=== PATIENT | male | born 1945 | race Caucasian/White ===

== ENCOUNTER 2017-12-15 16:49 | Inpatient (IN) | payer MEDICARE ==
[2017-12-15 17:35] LABS: Hematocrit 44 % (42-52); Hemoglobin 14.8 g/dl (14.0-18.0); Mean Corpuscular HGB Conc 34 g/dl (31-36); Mean Corpuscular Hemoglobin 30 pg (27-31); Mean Corpuscular Volume 90 fL (80-94); Mean Platelet Volume 9.2 um3 (7.4-10.4); Platelet Count 162 10^3/ul (150-450); Red Blood Count 4.93 10^6/ul (4.0-5.4); Red Cell Distribution Width 15 % (10.5-15)
--- NOTE | 2017-12-15 17:51 | RAD ---
INDICATION: Difficulty breathing. COPD. COMPARISON: October 21, 2014 CT. TECHNIQUE: Dual energy PA and routine lateral views of the chest were obtained. REPORT: Chronic moderate elevation of the RIGHT hemidiaphragm. Overall the lung volumes are elevated and there is patchy rarefaction of the mid to upper lung zone interstitial markings. No alveolar consolidation, focal pulmonary lesion, pleural effusion, pneumothorax. The heart, pulmonary vasculature, and mediastinal contours are unremarkable. Diffuse mild thoracic degenerative spondylosis. IMPRESSION: 1. Chronic obstructive pulmonary disease. 2. Chronic moderate elevation of the RIGHT hemidiaphragm. 3. No acute cardiopulmonary process evident.
[2017-12-15 17:52] LABS: EGFR Non-African American 81.1 (>60)
[2017-12-15 17:53] LABS: ABS Basophils 0.1 10^3/ul (0-0.2); ABS Eosinophils 0 10^3/ul (0-0.6); ABS Lymphocytes 1.8 10^3/ul (1.0-4.8); ABS Monocytes 1.9 10^3/ul (0-0.8); ABS Neutrophils 11.1 10^3/ul (1.5-7.7); ABS Nucleated RBC 0 10^3/ul; Eosinophil % 0.2 % (0-6); Lymphocyte % 12.3 % (25-47); Nucleated Red Blood Cells % 0.1
[2017-12-15 18:07] LABS: Urine Appearance Cloudy; Urine Blood 1+ (Negative); Urine Color Amber; Urine Ketones Negative (Negative); Urine Protein Negative (Negative); Urine Specific Gravity 1.021 (1.010-1.030); Urine Urobilinogen Positive (Negative)
[2017-12-15] MEDS ORDERED: cefTRIAXone(*) 2 GM in NS 0.9% 100 ML* 100 ML IVPB ONE (18:15)
[2017-12-15] MEDS ORDERED: NS 0.9% 100 ML* 100 ML ONE (18:18)
[2017-12-15] MEDS ORDERED: NS 0.9% 1000 ML* 3,000 ML IV ONE (18:20)
[2017-12-15] MEDS ORDERED: Ondansetron INJ* 2 MG/ML VIAL ONE (18:45)
[2017-12-15] MEDS ORDERED: Ondansetron INJ* 2 MG/ML VIAL IV ONE (18:46)
--- NOTE | 2017-12-15 18:50 | ED ---
Yony Cornejo Stephanie, scribed for Rafa Dc MD on 12/15/17 at 1724 . Shortness of Breath - HPI Summary HPI Summary: The pt is a 72 y/o M presenting to the ED with c/o SOB since 12/12/17. Symptoms include weakness, dysuria, dyspnea and urinary retention. The pt denies CP, abd pain and fever. The pt has a hx of COPD. - History of Current Complaint Chief Complaint: EDShortnessOfBreath Time Seen by Provider: 12/15/17 17:03 Hx Obtained From: Patient Onset/Duration: Gradual Onset, Lasting Days - 2-3, Still Present Timing: Constant Current Severity: Moderate Dyspnea At: Rest Aggrevating Factors: Movement, Other - laying supine Alleviating Factors: Nothing - Allergy/Home Medications Allergies/Adverse Reactions: Allergies Allergy/AdvReac Type Severity Reaction Status Date / Time No Known Allergies Allergy Verified 10/21/14 13:28 Home Medications: Home Medications Albuterol HFA INHALER* [Ventolin HFA Inhaler*] 2 puff INH Q4H PRN 12/15/17 [ History Confirmed 12/15/17] Budesonide/Formote 160/4.5(NF) [Symbicort 160/4.5 (NF)] 1 puff INH BID 12/15/17 [History Confirmed 12/15/17] PMH/Surg Hx/FS Hx/Imm Hx Endocrine/Hematology History: Denies: Hx Diabetes Cardiovascular History: Reports: Hx Hypercholesterolemia Denies: Hx Congestive Heart Failure, Hx Hypertension Respiratory History: Reports: Hx Asthma - Childhood, Hx Chronic Obstructive Pulmonary Disease (COPD), Hx Sleep Apnea - new CPAP History: Denies: Hx Renal Disease Sensory History: Reports: Hx Contacts or Glasses Opthamlomology History: Reports: Hx Contacts or Glasses - Surgical History Surgery Procedure, Year, and Place: NONE Infectious Disease History: No Infectious Disease History: Denies: Traveled Outside the [place] in Last 30 Days - Family History Known Family History: Positive: Cardiac Disease - [place], Diabetes, Other - breast cancer-sister - Social History Occupation: Employed Full-time Lives: With Family Alcohol Use: None Substance Use Type: Reports: None Smoking Status (MU): Former Smoker Review of Systems Negative: Fever, Chills Negative: Erythema Negative: Sore Throat Negative: Chest Pain Positive: Shortness Of Breath, Other - dyspnea. Negative: Cough Negative: Abdominal Pain, Vomiting, Nausea Positive: dysuria, other - urinary retention. Negative: hematuria Negative: Myalgia, Edema Negative: Rash Neurological: Other - Negative: dizziness Positive: Weakness All Other Systems Reviewed And Are Negative: Yes Physical Exam - Summary Physical Exam Summary: Constitutional: Well-developed, Well-nourished, Alert. (-) Distressed Skin: Warm, Dry HENT: Normocephalic; Atraumatic Eyes: Conjunctiva normal Neck: Musculoskeletal ROM normal neck. (-) JVD, (-) Stridor, (-) Tracheal deviation Cardio: Rhythm regular, rate normal, Heart sounds normal; Intact distal pulses; The pedal pulses are 2+ and symmetric. Radial pulses are 2+ and symmetric. (-) Murmur Pulmonary/Chest wall: Effort normal. (-) Respiratory distress, (-) Wheezes, (-) Rales Abd: Soft, obese abdomen, (-) Tenderness, (-) Distension, (-) Guarding, (-) Rebound Musculoskeletal: (-) Edema Lymph: (-) Cervical adenopathy Neuro: Alert, Oriented x3 Psych: Mood and affect Normal Triage Information Reviewed: Yes Vital Signs On Initial Exam: Initial Vitals Temp Pulse Resp BP Pulse Ox 98.9 F 97 24 132/71 86 12/15/17 16:56 12/15/17 16:56 12/15/17 16:56 12/15/17 16:56 12/15/17 16:56 Vital Signs Reviewed: Yes Diagnostics - Vital Signs Vital Signs Temp Pulse Resp BP Pulse Ox 12/15/17 16:56 98.9 F 97 24 132/71 86 - Laboratory Result Diagrams: 12/15/17 17:24 12/15/17 17:24 Lab Statement: Any lab studies that have been ordered have been reviewed, and results considered in the medical decision making process. - Radiology CXR Xray Interpretation: Positive (See Comments) Radiology Interpretation Completed By: Radiologist - 1. Chronic obstructive pulmonary disease. 2. Chronic moderate elevation of the RIGHT hemidiaphragm. 3. No acute cardiopulmonary process evident. ED physician has reviewed this report and agrees. - EKG 17:19 Cardiac Rate: Tachycardia EKG Rhythm: Sinus Tachycardia - 100 BPM EKG Interpretation: No STEMI Re-Evaluation - Re-Evaluation First Eval Re-Evaluation Time: 18:12 Change: Worse - The pt states he is feeling weak and worse that when he first entered the ED. He has been feeling fatigued for the past 3 days. Current fever of 101.5. Course/Dx - Course Course Of Treatment: ED physician will admit the pt for prostatitis and sepsis. - Diagnoses Provider Diagnoses: Prostatitis, Sepsis - Physician Notifications Discussed Care of Patient With: Zaire Kirk Time Discussed With Above Provider: 18:18 Discharge - Sign-Out/Discharge Documenting (check all that apply): Discharge - Discharge Plan Condition: Stable Disposition: ADMITTED TO [facility] Referrals: Vidal Quan MD [Primary Care Provider] - Additional Instructions: RETURN TO THE EMERGENCY DEPARTMENT FOR CHANGING OR WORSENING SYMPTOMS. The documentation as recorded by the Yony souza Stephanie accurately reflects the service I personally performed and the decisions made by Dao snyder Jerry, MD.
[2017-12-15] MEDS ORDERED: CEFTRIAXONE 2000 MG IVPB ONE ×2 (19:00)
[2017-12-15] MEDS ORDERED: Acetaminophen TAB* 325 MG ONE (19:25)
[2017-12-15] MEDS: Acetaminophen TAB* 325 MG PO PRN (19:30)
[2017-12-15] MEDS ORDERED: Albuterol HFA INHALER* 8 gm MDI INH PRN (19:32)
[2017-12-15] MEDS ORDERED: NS 0.9% 1000 ML* 1,000 ML IV ONE (20:11)
[2017-12-15] MEDS: Heparin VIAL(*) 5000 UNITS/ML VIAL (FIVE THOUSAND) SUBCUT SCH (22:00)
--- NOTE | 2017-12-16 00:33 | HP ---
CC: Dr. Quan * [facility] MEDICINE HISTORY AND PHYSICAL: DATE OF ADMISSION: 12/15/17 PRIMARY CARE PHYSICIAN: Dr. Quan. ATTENDING PHYSICIAN: Dr. Mukund Barrios *(dictation provided by Naida Casarez NP) CHIEF COMPLAINT: Difficulty urinating. HISTORY OF PRESENT ILLNESS: Mr. Joy is a 72-year-old male with past medical history of COPD and obstructive sleep apnea who presents to the hospital with concern for inability to urinate. The patient states that he has been feeling unwell for about 2 to 3 days. He just described generalized malaise and poor appetite. He was urinating without difficulty without dysuria or frequency. He had no fever. He had no other specific symptoms, but stated that he just wanted to "lie in the bed all day." Last night, he had some burning when he tried to urinate and then since the evening, he had not been able to urinate again. Last night, he did have significant burning when he tried to urinate. He denies any other complaint, other than headache. He has had no chest pain. No shortness of breath, no nausea, no vomiting, no abdominal pain. In the emergency room, Mr. Joy had a Lorenzo placed. He only had 100 to 200 mL of urine at that point. His white blood cell count is elevated to 15. His BUN and creatinine are normal. His urinalysis is grossly positive with positive nitrite, leuk esterase and bacteria. He is febrile with a temperature 102, but not tachycardiac and his blood pressure is stable. PAST MEDICAL HISTORY: 1. Obstructive sleep apnea with CPAP. 2. COPD. 3. Fatty liver. MEDICATIONS: Outpatient are: 1. Albuterol inhaled q.4 hours p.r.n. 2. Symbicort 160/4.5 one puff inhaled b.i.d. ALLERGIES: No known drug allergies. FAMILY HISTORY: Father had [place] and had diabetes and at 72. His sister and mother, both had breast cancer. SOCIAL HISTORY: The patient is a former smoker. He quit 40 years ago. There is no reported alcohol or drug use. The patient lives with his Nneka. 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 He states his Nneka will be the healthcare proxy. REVIEW OF SYSTEMS: A 14-point review of systems was completed with Mr. Joy and all those not mentioned above were negative. PHYSICAL EXAMINATION GENERAL: Mr. Joy is lying in the bed. He is in no acute distress. His is at bedside. VITAL SIGNS: Temperature 102, pulse rate 97, respiratory rate 20, O2 saturation 95% on room air, and blood pressure 112/58. HEENT: Extraocular movements are intact. LUNGS: Clear to auscultation bilaterally with no accessory muscle use and good aeration. HEART: S1, S2. No murmur, rub, or gallop and regular. ABDOMEN: Soft and nontender with bowel sounds positive x4. EXTREMITIES: No cyanosis or edema. NEURO: He is alert. He is oriented x3. He moves all extremities equally. There is no facial asymmetry. No focal weakness. SKIN: Intact. LABORATORY DATA/DIAGNOSTIC STUDIES: WBC 15.0, hemoglobin 14.8, hematocrit 44, platelet count 162. Sodium 134, potassium 3.9, chloride 101, serum bicarbonate 26, BUN 14, creatinine 0.92. Glucose 134, lactic acid 1.3. Urine shows positive nitrites, 2+ leuk esterase, 1+ bacteria. Flu swab is negative. Chest x-ray shows "chronic obstructive pulmonary disease, chronic moderate elevation of the right hemidiaphragm, no acute cardiopulmonary process evident. " EKG shows sinus tachycardia with heart rate about 100 and no evidence of ischemia. ASSESSMENT AND PLAN: Mr. Joy is a 72-year-old male with past medical history obstructive sleep apnea, with CPAP and chronic obstructive pulmonary disease who presents to hospital today with 2 to 3 days of generalized malaise culminating in dysuria and urinary retention, found to have sepsis secondary to urinary tract infection/prostatitis. Our plans are for inpatient admission as expected length of stay to be greater than 2 days for the followin. Sepsis secondary to urinary tract infection/prostatitis: The patient will be treated with ceftriaxone and intravenous fluids. He will have Tylenol available for fever. He has received 3 L of IV fluid in the emergency room. I will give an additional liter now to equal the full 30 mL per kg. He will have IV fluids at 150 mL per hour after that. The patient did have blood cultures drawn. He is hemodynamically stable. His lactic acid is normal. 2. Obstructive sleep apnea. Continue CPAP. 3. Chronic obstructive pulmonary disease. No evidence of acute exacerbation. I will plan to continue albuterol p.r.n. 4. DVT prophylaxis with heparin subcu. 5. Code status is full code. TIME SPENT: Approximately 60 minutes was spent on admission of this patient; more than half time spent with the patient at the bedside reviewing the events leading up to this hospitalization, performing the physical examination and reviewing the plan of care. NAIDA CASAREZ NP [id number]/[facility] #: [id number] TAMEKA
[2017-12-16] MEDS: Acetaminophen TAB* 325 MG PO PRN ×2 (05:17→11:28)
[2017-12-16] MEDS: Heparin VIAL(*) 5000 UNITS/ML VIAL (FIVE THOUSAND) SUBCUT SCH ×3 (05:18→22:01)
[2017-12-16 05:43] LABS: ABS Basophils 0.1 10^3/ul (0-0.2); ABS Eosinophils 0.1 10^3/ul (0-0.6); ABS Lymphocytes 2.1 10^3/ul (1.0-4.8); ABS Monocytes 1.4 10^3/ul (0-0.8); ABS Neutrophils 8.1 10^3/ul (1.5-7.7); ABS Nucleated RBC 0 10^3/ul; Eosinophil % 0.7 % (0-6); Hematocrit 39 % (42-52); Hemoglobin 13.4 g/dl (14.0-18.0); Mean Corpuscular HGB Conc 34 g/dl (31-36); Mean Corpuscular Hemoglobin 30 pg (27-31); Mean Corpuscular Volume 89 fL (80-94); Nucleated Red Blood Cells % 0; Platelet Count 158 10^3/ul (150-450); Red Blood Count 4.44 10^6/ul (4.0-5.4); Red Cell Distribution Width 14 % (10.5-15); White Blood Count 11.8 10^3/ul (3.5-10.8)
[2017-12-16 06:00] LABS: EGFR Non-African American 101.1 (>60)
--- NOTE | 2017-12-16 08:54 | PN ---
Subjective Date of Service: 12/16/17 Interval History: Mr. Joy reports feeling much better today. He denies dyuria and continues to be draining dark urine through the salinas. He has a mild headache but denies other complaint including chest pain, SOB, nausea, or abdominal pain. Objective Active Medications: Acetaminophen (Tylenol Tab*) 650 mg PO Q6H PRN Albuterol (Ventolin Hfa Inhaler*) 2 puff INH Q4H PRN Heparin Sodium (Porcine) (Heparin Vial(*)) 5,000 units SUBCUT Q8HR DOR[place] Lactated Ringer's (Lactated Ringers 1000 Ml Bag*) 1,000 mls @ 150 mls/hr IV PER RATE DOROTA Ceftriaxone Sodium 1,000 mg/ (Sterile Water) 10 mls @ 40 mls/hr IVPB Q24H DOROTA Vital Signs: Temp Pulse Resp BP Pulse Ox 98.4 F 83 17 151/67 93 12/16/17 07:11 12/16/17 07:11 12/16/17 07:11 12/16/17 07:11 12/16/17 07:11 Oxygen Devices in Use Now: None Appearance: Male lying in bed in NAD Eyes: No Scleral Icterus Ears/Nose/Mouth/Throat: Mucous Membranes Moist Neck: Trachea Midline Respiratory: Symmetrical Chest Expansion and Respiratory Effort, Clear to Auscultation Cardiovascular: NL Sounds; No Murmurs; No JVD, No Edema Abdominal: NL Sounds; No Tenderness; No Distention Lymphatic: No Cervical Adenopathy Extremities: No Edema Skin: No Rash or Ulcers Neurological: Alert and Oriented x 3, NL Muscle Strength and Tone Result Diagrams: 12/16/17 05:24 12/16/17 05:24 Microbiology and Other Data: . Assess/Plan/Problems-Billing Assessment: Mr. Joy is a 72 yo M with a PMH of OTTONIEL and COPD who was admitted on 12/15/17 with urinary retention and sepsis secondary to UTI/prostatitis. - Patient Problems (1) Sepsis Comment: - Resolved. WBC normalized, no further fever. - Secondary to UTI/prostatitis. - Continue IVF as urine remains dark and patient was significantly dehydrated on arrival. (2) Prostatitis Comment: - Suspect prostatitis based on severity of symptoms. - Plan for three week course of antibiotics and follow up with urology. - Culture with ecoli, continue ceftriaxone and await sensitivities. - Urinary retention on arrival, plan for voiding trial tomorrow. (3) Impaired fasting glucose Comment: - BG 135 this AM. - Check HgbA1c. (4) COPD (chronic obstructive pulmonary disease) Comment: - No evidence of exacerbation. - Continue symbicort. (5) OTTONIEL on CPAP Comment: - Continue home cpap. (6) DVT prophylaxis Comment: - Heparin SQ. (7) Full code status Comment: Status and Disposition: Inpatient with expected LOS > 2 days. Anticipate discharge to home when medically stable.
[2017-12-16] MEDS: NS 0.9% 1000 ML* 1,000 ML IV SCH ×2 (13:18→20:13)
[2017-12-16] MEDS ORDERED: Lidocaine 4% TOPICAL* 50 ML TOP.SOLN TOPICAL PRN (16:19)
[2017-12-16] MEDS: Morphine INJ* 4 MG/ML 1 ML SYRINGE (NEW SYRINGE VERSION) IV PRN ×2 (16:39→21:03)
[2017-12-16] MEDS ORDERED: cefTRIAXone VIAL(*) 1,000 MG VIAL IVPB SCH (18:00)
[2017-12-16] MEDS ORDERED: NS 0.9% IVPB SCH (18:00)
[2017-12-16] MEDS ORDERED: CEFTRIAXONE IVPB SCH (18:00)
[2017-12-16] MEDS: PTO - Budesonide/Formote 160/4.5(NF) MDI INH SCH (18:04)
[2017-12-17] MEDS: NS 0.9% 1000 ML* 1,000 ML IV SCH ×2 (03:24→09:59)
[2017-12-17] MEDS: PTO - Budesonide/Formote 160/4.5(NF) MDI INH SCH (06:12)
[2017-12-17] MEDS: Heparin VIAL(*) 5000 UNITS/ML VIAL (FIVE THOUSAND) SUBCUT SCH ×2 (06:13→14:23)
--- NOTE | 2017-12-17 08:52 | PN ---
Subjective Date of Service: 12/17/17 Interval History: Mr. Joy is feeling well today and is eager for discharge to home. Objective Active Medications: Acetaminophen (Tylenol Tab*) 650 mg PO Q6H PRN Albuterol (Ventolin Hfa Inhaler*) 2 puff INH Q4H PRN Budesonide/Formoterol Fumarate (Symbicort 160/4.5 (Nf)) 1 puff INH 0600,1800 D[place] Heparin Sodium (Porcine) (Heparin Vial(*)) 5,000 units SUBCUT Q8HR D[place] Ceftriaxone Sodium 1,000 mg/ (Sodium Chloride) 10 mls @ 40 mls/hr IVPB 1800 DOR[place] Sodium Chloride (Ns 0.9% 1000 Ml*) 1,000 mls @ 150 mls/hr IV PER RATE DOROTA Lidocaine HCl (Lidocaine 4% Topical*) 1 applic TOPICAL .SEE ORDER PRN Morphine Sulfate (Morphine Inj (Syringe)*) 4 mg IV Q4H PRN Vital Signs: Temp Pulse Resp BP Pulse Ox 98.9 F 73 16 104/46 93 12/17/17 11:25 12/17/17 11:25 12/17/17 11:25 12/17/17 11:25 12/17/17 11:25 Oxygen Devices in Use Now: None Appearance: Male lying in bed in NAD Eyes: No Scleral Icterus Ears/Nose/Mouth/Throat: Mucous Membranes Moist Neck: Trachea Midline Respiratory: Symmetrical Chest Expansion and Respiratory Effort, Clear to Auscultation Cardiovascular: NL Sounds; No Murmurs; No JVD, No Edema Abdominal: NL Sounds; No Tenderness; No Distention Lymphatic: No Cervical Adenopathy Extremities: No Edema Skin: No Rash or Ulcers Neurological: Alert and Oriented x 3, NL Muscle Strength and Tone Nutrition: Taking PO's Result Diagrams: 12/16/17 05:24 12/16/17 05:24 Microbiology and Other Data: . Assess/Plan/Problems-Billing Assessment: Mr. Joy is a 72 yo M with a PMH of OTTONIEL and COPD who was admitted on 12/15/17 with urinary retention and sepsis secondary to UTI/prostatitis. - Patient Problems (1) Sepsis Comment: - Resolved. WBC normalized, no further fever. - Secondary to UTI/prostatitis. (2) Prostatitis Comment: - Suspect prostatitis based on severity of symptoms. - Plan for three week course of antibiotics and follow up with urology. - Culture with ecoli, continue ceftriaxone and await sensitivities. - Urinary retention on arrival, patient will be discharged with salinas to follow up outpatient with urology. (3) Impaired fasting glucose Comment: - BG 135 this AM. - Check HgbA1c 6.8, recommend lifestyle changes and follow up with PCP. (4) COPD (chronic obstructive pulmonary disease) Comment: - No evidence of exacerbation. - Continue symbicort. (5) OTTONIEL on CPAP Comment: - Continue home cpap. (6) DVT prophylaxis Comment: - Heparin SQ. (7) Full code status Comment: Status and Disposition: Inpatient with expected LOS > 2 days. Discharge to home.
[2017-12-17 15:49] VITALS: BP 129/68
--- NOTE | 2017-12-18 02:38 | DS ---
CC: Dr. Quan * [facility] MEDICINE DISCHARGE SUMMARY: DATE OF ADMISSION: 12/15/17 DATE OF DISCHARGE: 12/17/17 PRIMARY CARE PROVIDER: Dr. Quan. ATTENDING PHYSICIAN: Dr. Zaire Kirk * (dictation provided by Naida Casarez NP). PRIMARY DIAGNOSES: 1. Sepsis. 2. Prostatitis. 3. new diagnosis of diabetes with hemoglobin A1c of 6.8. SECONDARY DIAGNOSES: 1. Obstructive sleep apnea, with CPAP. 2. Chronic obstructive pulmonary disease. 3. Fatty liver. MEDICATIONS AT THE TIME OF DISCHARGE: 1. Budesonide/formoterol 160/4.5 one puff inhaled b.i.d. 2. Albuterol inhaler 2 puffs inhaled q.4 hours p.r.n. 3. Bactrim DS 1 tab p.o. b.i.d. x19 days. HOSPITAL COURSE: Mr. Joy is a 72-year-old male with past medical history as mentioned above, who presented to the hospital on 12/15/17 with concern for inability to urinate. Please see the dictated H and P from myself for complete details. In brief, the patient reported that he had had 2 to 3 days prior to admission of feeling poorly. He said that he just felt terrible and wanted to "lay in bed all day." He had no specific other symptom; however, the night prior to admission, he began to have some difficulty urinating culminating in inability to pee and admission to the emergency department. He said there was no significant dysuria prior to that. In the ED, with some difficulty, a Lorenzo was placed and urinalysis was positive for infection with nitrite, 2+ leuk esterase, and positive bacteria. He also had a WBC of 15 and a temperature to 102 qualifying him for 2 SIRS criteria to meet sepsis; however, he did not meet qSOFA criteria. Mr. Joy was admitted to the hospital. He was treated with IV fluids and ceftriaxone for antibiotic coverage. With this, a repeat white blood cell count the next day was 11.8. He has had a low-grade fever as of last night to 100.3 only. He is tolerating oral intake well. He is ambulating in his room independently. Mr. Joy says urine microbiology report is available and shows E. coli, which has varied sensitivities including to Bactrim. Plans are for Mr. Joy to be discharged to home to complete a course of Bactrim for full 3 weeks. He will also be going home with his Lorenzo catheter after receiving teaching from nursing staff. He is to follow up closely with Dr. Hawkins and/or Dr. Gomes in the offices of [facility] in the next 5 to 7 days regarding evaluation and possible removal of Lorenzo. DISPOSITION: To home. DIET: Low fat, low salt, low carb. ACTIVITY: As tolerated. FOLLOWUP PLANS: 1. Please follow up with [facility] regarding evaluation and possible removal of Lorenzo. 2. Please follow up with Dr. Quan regarding this acute hospitalization and regarding finding of hemoglobin A1c of 6.8. TIME SPENT: Approximately 60 minutes was spent on discharge of this patient, more than half time spent with the patient at the bedside reviewing the events leading up to this hospitalization, performing the physical examination, and reviewing the plan of care. NAIDA CASAREZ NP [id number]/[facility] #: [id number] TAMEKA
== END 2017-12-17 15:45 | disposition home or self-care (01) | DRG 872 ==
LOC: ED 16:49 → SSU 18:19
PROVIDERS: ADMIT Internal Medicine; ATTEND Internal Medicine
DX: A41.9 Sepsis, unspecified organism (principal); N39.0 Urinary tract infection, site not specified; N41.9 Inflammatory disease of prostate, unspecified; E11.9 Type 2 diabetes mellitus without complications; G47.33 Obstructive sleep apnea (adult) (pediatric); J44.9 Chronic obstructive pulmonary disease, unspecified; B96.20 Unspecified Escherichia coli [E. coli] as the cause of diseases classified elsewhere; K76.0 Fatty (change of) liver, not elsewhere classified; Z79.899 Other long term (current) drug therapy; Z87.891 Personal history of nicotine dependence; Z83.3 Family history of diabetes mellitus; Z82.49 Family history of ischemic heart disease and other diseases of the circulatory system; Z80.3 Family history of malignant neoplasm of breast
CPT/HCPCS: 36415; 71046; 80048; 80053; 81003; 81015; 83036; 83605; 84484; 85025; 87040; 87077; 87086; 87186; 87502; 93005; 99284; A9270-GY; J0696; J1644; J2270; J2405

== ENCOUNTER 2018-04-16 11:06 | Day surgery (SDC) | payer MEDICARE ==
[~2018-04-16 11:06] MED LIST: Acetaminophen TAB* 325 MG PO PRN; Buffered Lidocaine 0.9% SYRIN* 5 ML/SYR SYRINGE INTRADERM ONE
[2018-04-16] MEDS ORDERED: Midazolam* 1 MG/ML 2 ML VIAL (2 MG) ONE (14:17)
[2018-04-16 14:47] VITALS: BP 142/77
[2018-04-16] MEDS ORDERED: Cyclopentolate 1% OPTH.SOL* 2 ML BTL ONE (15:28)
[2018-04-16] MEDS ORDERED: Lidocaine 1%* 5 ML VIAL ONE (15:28)
[2018-04-16] MEDS ORDERED: acetaZOLAMIDE TAB* 250 MG ONE (15:28)
[2018-04-16] MEDS ORDERED: Phenylephrine 2.5% OPTH.SOL* 2 ML BTL ONE (15:29)
[2018-04-16] MEDS ORDERED: Povidone Iodine 5% OPTH* 30 ML BTL ONE (15:29)
[2018-04-16] MEDS ORDERED: Proparacaine 0.5% OPHTH.SOL* 15 ML BTL ONE (15:29)
[2018-04-16] MEDS ORDERED: Neomycin/Polymy/Dex OPTH.SUSP* MAXITROL 0.1% 5 ML ONE (15:29)
[2018-04-16] MEDS ORDERED: Ketorolac 0.5% OPHTH (NF) 0.5 % 5 ML BTL ONE (15:29)
[2018-04-16] MEDS ORDERED: Lidocaine 2% EPI 1:200000 MPF*10-20 ML VIAL ONE (15:29)
--- NOTE | 2018-04-16 15:39 | OP ---
DATE OF OPERATION: 04/16/2018. DATE OF : 1945. SURGEON: Kurtis Rodriguez M.D. PREOPERATIVE DIAGNOSIS: Cataract right eye. POSTOPERATIVE DIAGNOSIS: Cataract right eye. OPERATIVE PROCEDURE: Extracapsular cataract extraction with intraocular lens implant right eye. PROCEDURE: The patient was brought to the operating room after being given 1/2% Alcaine with epineph rine drops in the preoperative area. The eye was prepped and draped in the usual sterile fashion. S terile drape and eyelid speculum were placed. Again, topical 1/2% Alcaine with epinephrine was given . A paracentesis incision was made at the 9 o'clock position with the No.75 blade. Clear cornea inc ision 2.2 x 2.2-mm was created at the 12 o'clock position starting at the anterior limbus using the 2 .2-mm keratome. The anterior chamber was irrigated with 0.4 mL of 1% non-preservative intracameral l idocaine and filled with DisCoVisc. A capsulorrhexis was completed using the cystotome and the Utrat a forceps. Hydrodissection was performed with balanced salt solution. The lens nucleus was removed w ith the Phacoemulsification handpiece without incident. Cortex was removed with the irrigation-aspir ation handpiece. The capsular bag was re-inflated using DisCoVisc and an SN60WF 20.5 implant was ins erted with the shooter. The pupil was very small, so a Malyugin ring was used to dilate the pupil pr ior to capsulorrhexis and removed after insertion of the lens. The irrigation-aspiration handpiece w as used to remove all residual DisCoVisc. The eye was refilled with balanced salt solution and the w ound checked and found to be watertight. Topical Maxitrol drops were given. Indication for complex cataract surgery: Pupil abnormality requiring pupil dilation device. [id number]/[facility] #: [id number]
== END 2018-04-16 14:48 | disposition home or self-care (01) ==
LOC: OREAST 11:06
PROVIDERS: ATTEND Specialist
DX: H25.811 Combined forms of age-related cataract, right eye (principal); H21.561 Pupillary abnormality, right eye; H04.123 Dry eye syndrome of bilateral lacrimal glands; H43.813 Vitreous degeneration, bilateral; I10 Essential (primary) hypertension; E78.5 Hyperlipidemia, unspecified; Z99.89 Dependence on other enabling machines and devices; J44.9 Chronic obstructive pulmonary disease, unspecified; R73.03 Prediabetes
CPT/HCPCS: A9270-GY; J2250; V2632

== ENCOUNTER 2018-04-23 06:16 | Day surgery (SDC) | payer MEDICARE ==
[~2018-04-23 06:16] MED LIST changes: -Acetaminophen TAB* 325 MG PO PRN
[2018-04-23] MEDS ORDERED: Midazolam* 1 MG/ML 2 ML VIAL (2 MG) ONE (07:29)
[2018-04-23 07:59] VITALS: BP 136/77
[2018-04-23] MEDS ORDERED: Neomycin/Polymy/Dex OPTH.SUSP* MAXITROL 0.1% 5 ML ONE (11:03)
[2018-04-23] MEDS ORDERED: Phenylephrine 2.5% OPTH.SOL* 2 ML BTL ONE (11:03)
[2018-04-23] MEDS ORDERED: Lidocaine 1%* 5 ML VIAL ONE (11:03)
[2018-04-23] MEDS ORDERED: Povidone Iodine 5% OPTH* 30 ML BTL ONE (11:03)
[2018-04-23] MEDS ORDERED: Cyclopentolate 1% OPTH.SOL* 2 ML BTL ONE (11:03)
[2018-04-23] MEDS ORDERED: Proparacaine 0.5% OPHTH.SOL* 15 ML BTL ONE (11:03)
[2018-04-23] MEDS ORDERED: acetaZOLAMIDE TAB* 250 MG ONE (11:03)
[2018-04-23] MEDS ORDERED: Lidocaine 2% EPI 1:200000 MPF*10-20 ML VIAL ONE (11:03)
[2018-04-23] MEDS ORDERED: Ketorolac 0.5% OPHTH (NF) 0.5 % 5 ML BTL ONE (11:03)
--- NOTE | 2018-04-23 14:10 | OP ---
OPERATIVE NOTE: DATE OF OPERATION: 04/23/18 DATE OF : [birth year] SURGEON: Kurtis Rodriguez M.D. PREOPERATIVE DIAGNOSIS: Cataract, left eye. POSTOPERATIVE DIAGNOSIS: Cataract, left eye. OPERATIVE PROCEDURE: Extracapsular cataract extraction with intraocular lens implant, left eye. DESCRIPTION OF PROCEDURE: The patient was brought to the operating room after being given 1/2% Alcai ne with epinephrine drops in the preoperative area. The eye was prepped and draped in the usual ster ile fashion. Sterile drape and eyelid speculum were placed. Again, topical 1/2% Alcaine with epinep hrine was given. A paracentesis incision was made at the 3 o'clock position with the No.75 blade. Cl ear cornea incision 2.2 x 2.2-mm was created at the 6 o'clock position starting at the anterior limbu s using the 2.2-mm keratome. The anterior chamber was irrigated with 0.4 mL of 1% non-preservative i ntracameral lidocaine and filled with DisCoVisc. A capsulorrhexis was completed using the cystotome and the Utrata forceps. Hydrodissection was performed with balanced salt solution. The lens nucleus was removed with the Phacoemulsification handpiece without incident. Cortex was removed with the irr igation-aspiration handpiece. The capsular bag was re-inflated using DisCoVisc and an SN60WF 19.5 im plant was inserted with the shooter. The irrigation-aspiration handpiece was used to remove all resi dual DisCoVisc. The eye was refilled with balanced salt solution and the wound checked and found to be watertight. Topical Maxitrol drops were given. [id number]/[facility] #: [id number]
== END 2018-04-23 08:05 | disposition home or self-care (01) ==
LOC: OREAST 06:16
PROVIDERS: ATTEND Specialist
DX: H25.812 Combined forms of age-related cataract, left eye (principal); H21.561 Pupillary abnormality, right eye; E78.5 Hyperlipidemia, unspecified; I10 Essential (primary) hypertension; K76.0 Fatty (change of) liver, not elsewhere classified; G47.33 Obstructive sleep apnea (adult) (pediatric); Z68.39 Body mass index [BMI] 39.0-39.9, adult; Z87.891 Personal history of nicotine dependence; J44.9 Chronic obstructive pulmonary disease, unspecified; K74.60 Unspecified cirrhosis of liver
CPT/HCPCS: A9270-GY; J2250; V2632

== ENCOUNTER 2018-11-02 10:12 | Emergency (ER) | payer MEDICARE ==
[2018-11-02 10:21] VITALS: BP 145/74
--- NOTE | 2018-11-02 10:51 | UC ---
Respiratory Complaint HPI - HPI Summary HPI Summary: Patient is 73 year old gentleman, who present today to the urgent care with flulike symptoms for past 3 days. Symptoms started night, reports body aches, productive cough-clear sputum. There is lot of runny nose and congestion No sore throat, chest pain or shortness of breath. The grandson diagnosed with ear infection recently. Denies any fever at home, chest pain or shortness of breath . Denies any abdominal pain , nausea or vomiting , diarrhea or constipation. - History of Current Complaint Chief Complaint: UCRespiratory Stated Complaint: FLU LIKE SYM Time Seen by Provider: 11/02/18 10:41 Hx Obtained From: Patient Pain Intensity: 5 - Allergies/Home Medications Allergies/Adverse Reactions: Allergies Allergy/AdvReac Type Severity Reaction Status Date / Time No Known Allergies Allergy Verified 04/23/18 06:28 Home Medications: Home Medications Benzonatate CAP* [Tessalon 100 MG CAP*] 200 mg PO BID 11/02/18 [History Confirmed 11/02/18] PMH/Surg Hx/FS Hx/Imm Hx - Additional Past Medical History Additional PMH: COPD Hypertension Diabetes DVT OTTONIEL Asthma As a child Previously Healthy: Yes - Surgical History Surgical History: None Surgery Procedure, Year, and Place: NONE - Family History Known Family History: Positive: Cardiac Disease - [place], Diabetes, Other - breast cancer-sister - Social History Alcohol Use: None Substance Use Type: None Smoking Status (MU): Former Smoker Type: Cigarettes Amount Used/How Often: 1 PPD FOR 5 YRS Length of Time of Smoking/Using Tobacco: 5 YRS Have You Smoked in the Last Year: No When Did the Patient Quit Smoking/Using Tobacco: 03/07/78 - Immunization History Most Recent Influenza Vaccination: Fall 2016 Most Recent Tetanus Shot: within 10 years Most Recent Pneumonia Vaccination: 2012 Review of Systems All Other Systems Reviewed And Are Negative: Yes Constitutional: Positive: Negative Skin: Positive: Negative Eyes: Positive: Negative ENT: Positive: Nasal Discharge, Other - Congestion Respiratory: Positive: Cough - Productive of white sputum. Negative: Shortness Of Breath Cardiovascular: Positive: Negative Gastrointestinal: Positive: Negative Genitourinary: Positive: Negative Motor: Positive: Negative Neurovascular: Positive: Negative Musculoskeletal: Positive: Negative Neurological: Positive: Negative Psychological: Positive: Negative Is Patient Immunocompromised?: No Physical Exam - Summary Physical Exam Summary: Physical Exam: Const: Appears well. No signs of apparent distress present. Alert and oriented x 3. Musculo: Walks with a normal gait. Head/Face: Atraumatic, normocephalic on inspection. Eyes: EOMI and PERRLA in both eyes. Conjunctivae clear. No discharge noted ENT: Hearing normal, TM normal appearing on right side and could not be visualized on the left side due to wax . Left ear appears normal upon visualizing after wax removal, still some wax is left. No tenderness to palpation on maxillary and frontal sinus. No pharyngeal erythema or exudates . Uvula is midline. No cervical or submandibular lymphadenopathy noted. Respiratory: Respirations are unlabored. Lungs clear to auscultation bilaterally, no wheezing , rhonchi or rales noted . CVS: Regular rate and Rhythm, S1S2 normal , no murmurs identified. Extremities: Peripheral circulation is grossly normal. Pulses 2+ Abdomen : Soft non tender , nondistended , Bowel sounds present . No guarding , rebound tenderness or rigidity noted. Skin: No lesions or rash located on the upper extremities or on the lower extremities. Neuro: Cranial nerves II to XII intact, motor and sensory intact. DTR Intact bilaterally. Mood is normal. Affect is normal. Triage Information Reviewed: Yes Vital Signs: Initial Vital Signs Temp 97.4 F 11/02/18 10:16 Pulse 86 11/02/18 10:16 Resp 18 11/02/18 10:16 BP 145/74 11/02/18 10:16 Pulse Ox 96 11/02/18 10:16 Vital Signs Reviewed: Yes UC Diagnostic Evaluation - Laboratory O2 Sat by Pulse Oximetry: 96 Respiratory Course/Dx - Course Course Of Treatment: During the visit today, we obtained a rapid flu test and strep test . He tested positive for flu and negative for strep. He is slightly over 2 days but he has a history of COPD and we discussed about the Tamiflu and plan to take it. I will prescribe it to the pharmacy. I advised that they should call the primary care doctor for anyone who is immunocompromised, elderly or a child for a prophylactic dose of Tamiflu. Patient expressed understanding . - Differential Dx/Diagnosis Provider Diagnosis: Influenza A Discharge - Sign-Out/Discharge Documenting (check all that apply): Patient Departure All imaging exams completed and their final reports reviewed: No Studies - Discharge Plan Condition: Stable Disposition: HOME Prescriptions: Benzonatate CAP* [Tessalon 100 MG CAP*] 100 mg PO TID PRN 10 Days #30 cap PRN Reason: Cough Oseltamivir CAP* [Tamiflu CAP*] 75 mg PO BID 5 Days #10 cap Patient Education Materials: Influenza (ED) Referrals: Vidal Quan MD [Primary Care Provider] - 1 Week Additional Instructions: Please start taking the medication as prescribed to the pharmacy . Keep yourself hydrated Ibuprofen or Tylenol as needed for fever Follow up with your primary care doctor in 1 week Patients blood pressure slightly high in Urgent care today , plan follow up with PCP for better control within 1 month Return to Urgent care / ER if symptoms get worse. - Billing Disposition and Condition Condition: STABLE Disposition: Home
[2018-11-02 11:25] LABS: Influenza A Molecular POSITIVE (Negative)
== END 2018-11-02 12:33 | disposition home or self-care (01) ==
LOC: UCEAST 10:12
DX: J10.1 Influenza due to other identified influenza virus with other respiratory manifestations (principal); I10 Essential (primary) hypertension; E11.9 Type 2 diabetes mellitus without complications; J44.9 Chronic obstructive pulmonary disease, unspecified; Z86.718 Personal history of other venous thrombosis and embolism; Z87.891 Personal history of nicotine dependence
CPT/HCPCS: 87651; 99213; G0463

== ENCOUNTER 2019-08-29 01:48 | Observation (INO) | payer MEDICARE ==
[2019-08-29] MEDS ORDERED: Albuterol/Ipratropium NEB.SOL* Albuterol 2.5 MG/Ipratropium 0.5 MG 3 ML INH ONE ×2 (01:57→04:36)
--- NOTE | 2019-08-29 02:04 | ED ---
Shortness of Breath - HPI Summary HPI Summary: This pt is a 74 Y/O M presenting to [facility] accompanied by his with a CC of SOB that has been increasingly worsening since 2 weeks ago. 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 He states that he has had nasal congestion with rhinorrhea, an unproductive mucousy cough, N/V, fatigue, and diarrhea since the worsening of his symptoms. He states that he feels diaphoretic and chilled tonight. He states that when he lies down, exercises, or takes a deep breath his symptoms are aggravated. He states that he has a Hx of COPD. He has a FHx of CHF. He states that he quit smoking in 1977 and was diagnosed with COPD 3 years ago. - History of Current Complaint Time Seen by Provider: 08/29/19 01:54 Hx Obtained From: Patient Onset/Duration: Gradual Onset, Lasting Weeks - 2, Still Present Timing: Constant Current Severity: Moderate Dyspnea At: Exertion Aggravating Factors: Deep Breaths, Recumbent Position Alleviating Factors: Nothing Associated Signs & Symptoms: Negative, Cough (Nonproductive), Wheezing, Fever, Chills, Diaphoresis, Nasal Congestion - Allergy/Home Medications Allergies/Adverse Reactions: Allergies Allergy/AdvReac Type Severity Reaction Status Date / Time No Known Allergies Allergy Verified 04/23/18 06:28 PMH/Surg Hx/FS Hx/Imm Hx Previously Healthy: Yes Endocrine/Hematology History: Reports: Hx Diabetes - BORDERLINE Denies: Hx Bone Marrow Disease, Hx Sickle Cell Disease, Hx Anemia Cardiovascular History: Reports: Hx Hypercholesterolemia, Hx Hypertension - BORDERLINE HTN Denies: Hx Congestive Heart Failure Respiratory History: Reports: Hx Asthma - Childhood, Hx Chronic Obstructive Pulmonary Disease (COPD), Hx Sleep Apnea - CPAP, Other Respiratory Problems/ Disorders - COPD GI History: Reports: Other GI Disorders - MORBID OBESITY History: Reports: Other Problems/Disorders - PROSTATE ISSUES Denies: Hx Renal Disease Sensory History: Reports: Hx Cataracts - BILATERAL, Hx Contacts or Glasses - reading, Hx Hearing Problem - per Denies: Hx Glaucoma, Hx Hearing Aid Opthamlomology History: Reports: Hx Cataracts - BILATERAL, Hx Contacts or Glasses - reading Denies: Hx Glaucoma - Cancer History Hx Chemotherapy: No Hx Radiation Therapy: No - Surgical History Surgical History: None Surgery Procedure, Year, and Place: NONE Hx Anesthesia Reactions: No - Immunization History Immunizations Up to Date: Yes Infectious Disease History: Denies: Traveled Outside the [place] in Last 30 Days - Family History Known Family History: Positive: Cardiac Disease - [place], Diabetes, Other - breast cancer-sister - Social History Occupation: Retired Lives: With Family Alcohol Use: None Hx Substance Use: No Substance Use Type: Reports: None Hx Tobacco Use: Yes Smoking Status (MU): Former Smoker Type: Cigarettes Amount Used/How Often: 1 PPD FOR 5 YRS Length of Time of Smoking/Using Tobacco: 5 YRS Have You Smoked in the Last Year: No Review of Systems - ROS Summary Review of Systems Summary: Home Medications Medication Instructions Recorded Confirmed Type Albuterol HFA INHALER* [Ventolin 2 puff INH Q4H PRN 12/15/17 11/02/18 History HFA Inhaler*] Budesonide/Formote 160/4.5(NF) 2 puff INH BID 12/15/17 11/02/18 History [Symbicort 160/4.5 (NF)] Tamsulosin CAP* [Flomax CAP*] 0.4 mg PO QAM 03/13/18 11/02/18 History Benzonatate CAP* [Tessalon 100 MG 100 mg PO TID PRN 10 Days #30 cap 11/02/18 Rx CAP*] Benzonatate CAP* [Tessalon 100 MG 200 mg PO BID 11/02/18 11/02/18 History CAP*] Oseltamivir CAP* [Tamiflu CAP*] 75 mg PO BID 5 Days #10 cap 11/02/18 Rx Positive: Fever, Chills, Fatigue, Skin Diaphoresis ENT: Other - nasal congestion Positive: Nasal Discharge Positive: Shortness Of Breath, Cough - unproductive Positive: Vomiting, Diarrhea, Nausea All Other Systems Reviewed And Are Negative: Yes Physical Exam - Summary Physical Exam Summary: General: Well-developed, obese male. Moderate respiratory discomfort, tripoding HEENT: Normocephalic, Atraumatic. Eyes: Conjuctiva normal, PERRL. Ears: TMs within normal limits. Nares: (-) discharge, (-) erythema. Oropharynx: Clear, mucous membranes moist, (-) exudates. Neck: Soft, FROM, (-) lymphadenopathy, (-) thyromegaly, (-) JVD. Cardiovascular: Normal sinus rhythm, (-) murmur. Lungs: tight wheezes throughout, bilateral crackles, (-) rhonchi. Abdomen: Soft, non-tender, non-distended, (-) organomegaly, normal bowel sounds. Back: (-) CVA tenderness Extremities: +1 pitting edema bilaterally Skin: Warm, dry, (-) rash. Neuro: Alert and oriented x3, no focal deficits. Psychiatric: Mood normal, affect normal. Triage Information Reviewed: Yes Vital Signs On Initial Exam: Temp Pulse Resp BP SpO2 FiO2 100 F 114 26 148/100 93 08/29/19 01:59 08/29/19 01:59 08/29/19 01:59 08/29/19 01:59 08/29/19 01:59 Vital Signs Reviewed: Yes Procedures - Sedation Patient Received Moderate/Deep Sedation with Procedure: No - Additional Procedures Additional Procedures: cardioversion/defib - Pt returned in SVT at 0545 at 199 BPM and was administed 6 mgs of Adenosine administered at 0551. returned to tachycardia at 106 Diagnostics - Laboratory Result Diagrams: 08/29/19 02:15 08/29/19 02:15 Lab Statement: Any lab studies that have been ordered have been reviewed, and results considered in the medical decision making process. - Radiology CXR Radiology Interpretation Completed By: ED Physician Summary of Radiographic Findings: Elevated R diaphragm, poor inspiration, no obvious infiltrate or effusion. ED physician has reviewed this report. - EKG 0158 Cardiac Rate: Tachycardia - 110 BPM EKG Rhythm: Sinus Tachycardia ST Segment: Normal Ectopy: None Summary of EKG Findings: EKG at 0158 reveals sinus tachycardia at 110 BPM, no acute changes, no ischemic changes. This EKG was reviewed and interpreted by Dr. Westfall at 0200 08/29/19. 0533 Cardiac Rate: Other Rate - supraventricular tachycardia 201 ST Segment: Other Summary of EKG Findings: acute lateral infarct with supraventricular tachycardia at [address] depressions in leads III, V2-V6 and ST elevations in leads V1, V2, AVL. Interpreted by Dr. Westfall at 0534 08/29/19. 0542 Cardiac Rate: Other Rate - supraventricular tachycardia [address] Segment: Normal Summary of EKG Findings: EKG at 0542 reveals SVT at 189 BPM, no STEMI. This EKG was reviewed and interpreted by Dr. Westfall at 0544 08/29/19. 0558 Cardiac Rate: Tachycardia - 102 BPM EKG Rhythm: Sinus Tachycardia ST Segment: Normal Ectopy: None Summary of EKG Findings: EKG at 0558 reveals sinus tachycardia at 102 BPM, no acute changes, no ischemic changes. This EKG was reviewed and interpreted by Dr. Westfall at 0600 08/29/19. Re-Evaluation - Re-Evaluation First Eval Re-Evaluation Time: 05:29 Change: Unchanged Comment: Pt went into a tachycardic rhythm at 200 BPM and self corrected before any medications were given. Second Eval Re-Evaluation Time: 05:31 Change: Worse Comment: Pt went into SVT at 200 BPM Third Eval Re-Evaluation Time: 05:37 Change: Improved Comment: Pt self converted. acute lateral infarct with supraventricular tachycardia at [address] depressions in leads III, V2-V6 and ST elevations in leads V1, V2, AVL. Interpreted by Dr. Westfall at 0534 08/29/19. Fourth Eval Re-Evaluation Time: 05:45 Change: Worse Comment: Pt returned in SVT at 0545 at 199 BPM and was administed 6 mgs of Adenosine administered at 0551. returned to tachycardia at 106 BPM. Cardezim 10 mgs drip was administered following the cardioversion. Pt states that while in SVT he reported feeling diaphoretic and had L shoulder discomfort. After the medications were given he states that is feeling much better. Course/Dx - Course Course Of Treatment: 74-year-old male presents with shortness of breath acutely worsening. Patient with diagnoses of COPD even though he stopped smoking 40 years ago. Is currently being worked up for shortness of breath. Patient hypoxic in the emergency room. Unable to maintain pulse ox on room air. Treated for possible COPD exacerbation. Also given Lasix for edema and possible CHF. Patient has significant urinary output. Prior to admission he suddenly went into SVT on the monitor. Asymptomatic. Patient was about to receive adenosine when he converted back to normal sinus rhythm. He did this again. The third time he did receive adenosine with significant improvement in his rhythm. Patient referred to hospitalist for admission. - Diagnoses Provider Diagnoses: SOB (shortness of breath), SVT (supraventricular tachycardia), Hypoxia - Physician Notifications Discussed Care of Patient With: Pedro Haskins Time Discussed With Above Provider: 06:18 Instructed by Provider To: Admit As Inpatient Admit/Transition Orders Completed By ED Provider: Yes - Critical Care Time Critical Care Time: 30-74 min - 40 minutes Discharge ED - Sign-Out/Discharge Documenting (check all that apply): Patient Departure - admitted - Discharge Plan Condition: Stable Disposition: ADMITTED TO [facility] - Billing Disposition and Condition Condition: STABLE Disposition: Admitted to [facility] - Attestation Statements Document Initiated by Scribe: Yes Documenting Scribe: Jeff Alva Provider For Whom Scribe is Documenting (Include Credential): Ammy Westfall MD Scribe Attestation: Jeff Cornejo, scribed for Ammy Westfall MD on 08/29/19 at 1941. Scribe Documentation Reviewed: Yes Provider Attestation: The documentation as recorded by the Jeff souza accurately reflects the service I personally performed and the decisions made by , Ammy Westfall MD Status of Scribe Document: Viewed
--- OUTSIDE RECORDS SUMMARY | 2019-08-29 02:32 | XMS REPORT | Summary of Care ---
:1945 Author Organization [facility] Address [address] [place] [address] Care Team Providers Name Role Phone Vidal Quan Primary Care Provider Reason for Referral Diagnostic Testing (Routine) Status Reason Specialty Diagnoses / Procedures Referred By Contact Referred To Contact Closed Diagnoses Chronic obstructive pulmonary disease, unspecified COPD type (HCC) Tian Nielsen MD Procedures PFT ROUTINE STUDIES [address] [place] [address] Reason for Visit Reason Comments COPD Encounter Details Date Type Department Care Team Description 08/17/2019 Office Visit [facility] Tian Nielsen MD Chronic obstructive 1 [address] pulmonary disease, [place] [id number] [place] [address] unspecified COPD type [phone] (FORMERLY [facility]) (Primary Dx) Allergies Active Allergy Reactions Severity Noted Date Comments No Known Drug Allergy 12/17/2007 documented as of this encounter (statuses as of 08/17/2019) Medications Medication Sig Dispensed Refills Start Date End Date Status albuterol HFA Take 2 Puffs by 1 Inhaler 6 02/07/2015 Active (VENTOLIN) 108 (90 inhalation FOUR BASE) MCG/ACT TIMES DAILY. Inhalation Aero SolnIndications: SOB (shortness of breath) Blood Glucose 1 Device by Does 1 Kit 0 05/18/2015 Active Monitoring Suppl not apply route. (BLOOD GLUCOSE METER) Brand:freestyle Does not apply lite Dx:790.29 KitIndications: non-Insulin Hyperglycemia dependent Test Blood Glucose 1 time(s) A DAY Tamsulosin HCl DAILY. 0 12/23/2017 Active (FLOMAX) 0.4 MG Oral Cap budesonide-formoterol Take 2 INHL by 3 Inhaler 3 08/21/2018 Active fumarate (SYMBICORT) inhalation TWICE 160-4.5 MCG/ACT DAILY. Inhalation AerosolIndications: SOB (shortness of breath) Glucose Blood In 1 Strip by In 100 Strip 3 06/23/2019 Active Vitro Vitro route StripIndications: DAILY. 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 General patient education discussion including: obesity-related excess mortality, weight loss link to reduction of risk factors for cardiac and other diseases, importance of long-term maintenance treatment in weight loss Hyperlipidemia 04/04/2010 Fatty liver 04/04/2010 HTN (hypertension), benign 03/30/2009 Chronic Low Back Pain 12/17/2007 Personal history of colonic polyps 12/17/2007 Diverticulosis of colon (without mention of hemorrhage) 12/17/2007 Erectile Dysfunction 12/17/2007 Personal History of Tobacco Use 12/17/2007 Benign non-nodular prostatic hyperplasia with lower urinary tract symptoms Type 2 diabetes mellitus with complication, without long-term current use of insulin documented as of this encounter (statuses as of 08/17/2019) Resolved Problems Problem Noted Date Resolved Date Abnormal liver function test 12/22/2007 09/26/2009 Elevated blood pressure reading without diagnosis of 12/17/2007 05/18/2015 hypertension documented as of this encounter (statuses as of 08/17/2019) Immunizations Name Administration Dates Next Due Influenza (IM) Preservative Free 06/24/2013 Influenza Vaccine 65 Yrs + 07/03/2019 Influenza Vaccine High Dose 07/01/2018, 05/28/2017, 06/20/2016, 07/06/2014 Influenza Virus Vaccine Pres Free 6-35 07/07/2012 Months PNEUMOCOCCAL POLYSACCHARIDE VACCINE 05/12/2012 Phenergan (25 mg) 01/24/2015 Pneumococcal Conjugate(13 Valent) 05/18/2015 TETANUS & DIPHTHERIA TOXOID (OVER 7 09/23/2004 YRS) documented as of this encounter Social History Tobacco Use Types Packs/Day Years Used Date Former Smoker 1.5 Quit: 01/05/1978 Smokeless Tobacco: Former User Quit: 04/06/1978 Comments: quit 03/07/78 Alcohol Use Drinks/Week oz/Week Comments No 0 Standard drinks or equivalent 0.0 Sex Assigned at Date Recorded Not on file Job Start Date Occupation Industry Not on file Not on file Not on file Travel History Travel Start Travel End No recent travel history available. documented as of this encounter Last Filed Vital Signs Vital Sign Reading Time Taken Comments Blood Pressure 140/80 08/17/2019 9:13 AM EST Pulse 86 08/17/2019 9:13 AM EST Temperature 36.7 08/17/2019 9:13 AM EST C (98 F) Respiratory Rate - - Oxygen Saturation 93% 08/17/2019 9:13 AM EST RA Inhaled Oxygen Concentration - - Weight 122.5 kg (270 lb) 08/17/2019 9:13 AM EST Height 172.7 cm (5' 8") 08/17/2019 9:13 AM EST Body Mass Index 41.05 08/17/2019 9:13 AM EST documented in this encounter Patient Instructions Patient InstructionsTian Nielsen MD - 08/17/2019 10:00 AM ESTCall with a progress report in 2 weeksElectronically signed by Tian Nielsen MD at 2018 10:53 AM EST documented in this encounter Progress Notes Tian Nielsen MD - 08/17/2019 10:00 AM EST PATIENT: Ryan Joy : 1945 DATE OF SERVICE: 08/17/2019 SUBJECTIVE: Ryan Joy is a 74-y.o. male who returns for follow up of his obstructive pulmonary disease. 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 The patient notes several issues. He has been having some increased dyspnea for about 1 to 2 weeks. This occurs with exertion and will resolve in a few minutes with rest. The patient has used albuterol with modest benefit. Cough is occasional. He is not raising any significant sputum. The patient also notes shortness of breath after eating and often will hear a gurgling sound. Additionally, he has some shortness of breath with lying on his right side. The patient denies chest pain. He is not having any nighttime awakening with dyspnea. He is using his CPAP regularly at night. SMOKING: Remote smoking history. MEDICATIONS: albuterol HFA (VENTOLIN) 108 (90 BASE) MCG/ACT Inhalation Aero Soln Blood Glucose Monitoring Suppl (BLOOD GLUCOSE METER) Does not apply Kit budesonide-formoterol fumarate (SYMBICORT) 160-4.5 MCG/ACT Inhalation Aerosol Glucose Blood In Vitro Strip Tamsulosin HCl (FLOMAX) 0.4 MG Oral Cap OXYGEN/DEVICES: CPAP at night. OBJECTIVE: General: Well-developed, obese elderly man in no significant distress. VS: BP 140/80 | Pulse 86 | Temp 98 F (36.7 C) (Temporal) | Ht 5' 8" (1.727 m) | Wt 270 lb (122.5 kg) | SpO2 93% Comment: RA | BMI 41.05 kg/m RR: No tachypnea. HEENT: The oropharynx is clear. Chest: The chest wall is symmetric. Breath sounds are diffusely diminished, more so with the right base. No wheezing is noted. Heart: Regular rate and rhythm. Extremities: No lower extremity edema. STUDIES: Spirometry today shows moderately severe airflow obstruction. These values are lower than those obtained in January 2019. After bronchodilator, the patient has a significant improvement in FEV1 in spirometric values comparable to the prior study. A chest radiograph from today shows eventration of the right hemidiaphragm. Otherwise, there is a degree of lung hyperinflation. No significant changes noted when compared with the prior chest radiograph from November 2017. ASSESSMENT/PLAN: 1. Chronic obstructive pulmonary disease. The findings on spirometry today suggest that the patient's increased symptoms are related to his airway disease. Given this, the patient will be treated with a 5-day course of prednisone and will continue his current inhaled medications. He will call with a progress report in approximately 2 weeks. The patient will be scheduled for follow-up in pulmonaryclinic in 6 months. The patient has had influenza vaccine. Author: Tian Nielsen MD 08/17/2019 09:14 documented in this encounter Plan of Treatment Date Type Specialty Care Team Description 09/14/2019 Lab Internal Medicine 09/21/2019 Office Visit Internal Medicine Vidal Quan MD [address] [place] [address] [phone] 02/17/2020 Office Visit Pulmonary Tian Nielsen MD [address] [address] [phone] Name Type Priority Associated Diagnoses Date/Time XR CHEST 2 VIEW PA Imaging Routine Chronic obstructive 08/17/2019 10:39 AM AND LATERAL pulmonary disease, EST (STANDARD) unspecified COPD type (HCC) Name Type Priority Associated Diagnoses Order Schedule XR CHEST 2 VIEW PA Imaging Routine Chronic obstructive Expected: 08/17/2019 , AND LATERAL pulmonary disease, Expires: 08/16/2020 (STANDARD) unspecified COPD type (HCC) Health Maintenance Due Date Last Done Comments ZOSTER IMMUNIZATION SERIES 1996 (1 of 2) AAA SCREENING/SURVEILLANCE 2011 MEDICARE ANNUAL WELLNESS 05/21/2017 05/21/2016, 05/12/2012 VISIT Diabetic Eye Exam 04/04/2019 04/04/2018 HEMOGLOBIN A1C 10/08/2019 04/07/2019, 10/01/2018, 03/24/2018, Additional history exists LIPID DISORDER SCREENING 04/07/2020 04/07/2019, 10/01/2018, 03/24/2018, Additional history exists URINE MICROALBUMIN 04/07/2020 04/07/2019, 03/24/2018, 05/12/2013 DEPRESSION SCREENING 04/14/2020 04/14/2019 FALL RISK ASSESSMENT 04/14/2020 04/14/2019, 04/14/2019 FOOT EXAM 04/14/2020 04/14/2019, 04/14/2019, 04/07/2018 Colonoscopy 03/19/2023 03/19/2018, 01/05/2013, 01/05/2008, Additional history exists HEPATITIS C SCREENING Completed 06/12/2007 PNEUMOCOCCAL 65+YRS Completed 05/18/2015, 05/12/2012 INFLUENZA VACCINE Completed 07/03/2019, 07/01/2018, 05/28/2017, Additional history exists HPV IMMUNIZATION SERIES Aged Out No longer eligible based on patient's age to complete this topic MENINGOCOCCAL VACCINE IMM Aged Out No longer eligible based on patient's age to complete this topic documented as of this encounter Goals Goal Patient Goal Associated Recent Patient-Stated? Author Type Problems Progress Blood Pressure Blood Pressure 140/80 No Kadeem, < 150/90 (08/17/2019 MD Vidal 9:13 AM EST) Note: This is an individualized treatment (blood pressure) goal for Rayn Joy: Displayed above (on the left) is your goal for blood pressure control. Your most recent blood pressure is also shown above, on the right. You should try to achieve blood pressures that are lower than your goal listed above (on the left). Glycohemoglobin A1c < 7.0 Diabetes 6.8 (04/07/2019 6:40 AM Vidal Chavez MD EDT) Note: This is an individualized treatment (diabetes control, HgbA1C) goal for Ryan Joy: Displayed above is your progress towards your HgbA1C goal. Your goal is shown above (on the left); your most recent HgbA1C is shown on the right. Note that lower numbers are better. Weight loss vs. 18 mo Lifestyle 0 (08/17/2019 9:13 AM EST) Vidal Chavez MD max (lbs) >= 10 Note: This is an individualized lifestyle goal for Ryan Joy: Your body mass index (BMI) is more than 30. You should lose weight. A reasonable starting goal is to lose 10 pounds. Displayed above is how many pounds you have lost thus far towards your 10 pound weight loss goal. Keep immunizations current Lifestyle Vidal Chavez MD Note: This is an individualized lifestyle goal for Ryan Joy: Please be sure to keep up-to-date on recommended immunizations. For example, this would include a yearly influenza vaccine. Immunization status can be seen by looking at the Health Maintenance sections of your [employer], Plan of Care, and any After Visit Summaries. Take all prescribed medications as directed Self-management Vidal Chavez MD Note: This is an individualized self-management goal for Ryan Joy: Please take all prescribed medications as directed. 1. Do not skip doses. If you cannot afford your medications, talk with your doctor. 2. Use a pill reminder system such as a pill box if needed. Your pharmacist can help you with this. 3. Contact your Pharmacy 5 days before your medication runs out. If you cannot take your medications for any reasons, talk with your doctor. 4. Please bring all of your medication bottles and inhalers (or a list of all your medications/inhalers) with you to every visit. Potential barriers to meeting all of your care plan goals will continue to be addressed on an ongoing basis. documented as of this encounter Results PFT ROUTINE STUDIES (08/17/2019 9:39 AM EST) Specimen Narrative Performed At [facility] Pulmonary Function Lab [place] [address] Last Name: RYAN JOY Room Number: CLINIC Typewriter Operator Automatic: JAROCHO Date: 1945 Age: 74 Weight: 270.0 lbs, 122.7 kg Gender: Male Height: 67.5 in, 171.5 cm Physician Name: [id number] Date: 08/17/2019 9:39:46 AM Smoke Status: Quit BMI: 41.75 kg/m2 Predicted Protocol: MOD [facility] NHANESIII C DISINTEGRATOR FEEDER NOTES 4 Puffs Albuterol Administered Click "view image" for full report Spirometry Test Quality:4 Diagnosis / Reason for Test:COPD Last Study:02/10/19 GOOD EFFORT. PHYSICIAN INTERPRETATION FINDINGS: Based on patient effort and technical quality the study is acceptable for interpretation. Spirometry shows moderately severe airflow obstruction with significant improvement in the FEV1 after bronchodilator. There is a mild reduction in vital capacity. IMPRESSION: Findings are consistent with moderately severe obstructive pulmonary disease with a degree of reversibility. The mild reduction in vital capacity is likely related to the patient's known eventration of the right hemidiaphragm. Other etiologies such as air trapping cannot be excluded. When compared with the patient's last prior study from January 2019, there has been a decrease in prebronchodilator spirometric values. Postbronchodilator values today are similar to the prebronchodilator values obtained in January 2019. Interpreted by: Tian Nielsen MD Procedure Note Interface, Multispeciality Results - 08/17/2019 11:48 AM [facility] Pulmonary Function Lab [place] [address] Last Name: RYAN JOY Room Number: CLINIC Typewriter Operator Automatic: JAROCHO Date: 1945 Age: 74 Weight: 270.0 lbs, 122.7 kg Gender: Male Height: 67.5 in, 171.5 cm Physician Name: Terrance Date: 08/17/2019 9:39:46 AM Smoke Status: Quit BMI: 41.75 kg/m2 Predicted Protocol: MOD 01 [employer] NHANESIII C DISINTEGRATOR FEEDER NOTES 4 Puffs Albuterol Administered Click "view image" for full report Spirometry Test Quality:4 Diagnosis / Reason for Test:COPD Last Study:02/10/19 [facility] [employer]ORT. PHYSICIAN INTERPRETATION FINDINGS: Based on patient effort and technical quality the study is acceptable for interpretation. Spirometry shows moderately severe airflow obstruction with significant improvement in the FEV1 after bronchodilator. There is a mild reduction in vital capacity. IMPRESSION: Findings are consistent with moderately severe obstructive pulmonary disease with a degree of reversibility. The mild reduction in vital capacity is likely related to the patient's known eventration of the right hemidiaphragm. Other etiologies such as air trapping cannot be excluded. When compared with the patient's last prior study from January 2019, there has been a decrease in prebronchodilator spirometric values. Postbronchodilator values today are similar to the prebronchodilator values obtained in January 2019. Interpreted by: Tian Nielsen MD Performing Organization Address City/State/Zipcode Phone Number RESPIRATORY THER documented in this encounter Visit Diagnoses Diagnosis Chronic obstructive pulmonary disease, unspecified COPD type (HCC) - Primary documented in this encounter Insurance Payer Benefit Plan / Subscriber ID Effective Dates Phone Address Type Group MEDICARE MEDICARE PART A xxxxxxxxxxx 2011-Present Medicare & B [facility] COMMERCIAL [facility] CARE xxxxxxxxxxx 2016-Present [facility] OPTIONS Guarantor Name Account Type Relation to Date of Phone Billing Patient Address Ryan Joy Personal/Family 1945 [phone] [phone] [place], [place] (Work) [address] documented as of this encounter
--- OUTSIDE RECORDS SUMMARY | 2019-08-29 02:32 | XMS REPORT | Summary of Care ---
:1945 Author Organization [facility] Address [address] [address] Care Team Providers Name Role Phone Jennydanielle Vidal Primary Care Provider Encounter Details Date Type Department Care Team Description 08/17/2019 Hospital Encounter [facility] XR Outpatient [address] [address] Allergies Active Allergy Reactions Severity Noted Date Comments No Known Drug Allergy 12/17/2007 documented as of this encounter (statuses as of 08/19/2019) Medications Medication Sig Dispensed Refills Start Date End Date Status albuterol HFA Take 2 Puffs by 1 Inhaler 6 02/07/2015 Active (VENTOLIN) 108 (90 inhalation FOUR BASE) MCG/ACT TIMES DAILY. Inhalation Aero SolnIndications: SOB (shortness of breath) Blood Glucose 1 Device by Does 1 Kit 0 05/18/2015 Active Monitoring Suppl not apply route. (BLOOD GLUCOSE METER) Brand:williamstyle Does not apply lite Dx:790.29 KitIndications: non-Insulin [...] as of this encounter (statuses as of 08/19/2019) Active Problems Problem Noted Date Obstructive sleep [...] as of this encounter (statuses as of 08/19/2019) Resolved Problems Problem Noted Date Resolved Date Abnormal liver function test 12/22/2007 09/26/2009 Elevated blood pressure reading without diagnosis of 12/17/2007 05/18/2015 hypertension documented as of this encounter (statuses as of 08/19/2019) Immunizations Name Administration Dates Next Due Influenza [...] of this encounter Last Filed Vital Signs Not on filedocumented in this encounter Plan of Treatment Date Type Specialty Care Team Description 09/14/2019 Lab Internal Medicine 09/21/2019 Office Visit Internal Medicine Vidal Quan MD [address] [place] [address] [phone] 02/17/2020 Office Visit Pulmonary Tian Nielsen MD [address] [address] Health Maintenance Due Date Last Done Comments [...] an individualized treatment (blood pressure) goal for Ryan Joy: Displayed above (on the left) is your goal for blood pressure control. Your most recent blood pressure is also shown above, on the right. You should try to achieve blood pressures that are lower than your goal listed above (on the left). Glycohemoglobin A1c < 7.0 Diabetes 6.8 (04/07/2019 6:40 AM No Vidal Quan MD EDT) Note: This is an individualized treatment (diabetes control, HgbA1C) goal for Ryan Joy: Displayed above is your progress towards your HgbA1C goal. Your goal is shown above (on the left); your most recent HgbA1C is shown on the right. Note that lower numbers are better. Weight loss vs. 18 mo Lifestyle 0 (08/17/2019 9:13 AM EST) No Vidal Quan MD max (lbs) >= 10 Note: This [...] Take all prescribed medications as directed Self-management No Vidal Quan MD Note: This is an individualized self-management [...] ongoing basis. documented as of this encounter Procedures Procedure Name Priority Date/Time Associated Diagnosis Comments XR CHEST 2 VIEW PA Routine 08/17/2019 10:39 AM Chronic obstructive Results for this AND LATERAL EST pulmonary disease, procedure are in (STANDARD) unspecified COPD the results type (HCC) section. documented in this encounter Results XR CHEST 2 VIEW PA AND LATERAL (STANDARD) (08/17/2019 10:39 AM EST) Specimen Impressions Performed At 1. No acute cardiopulmonary disease is seen. Urgency: Routine. This is a routine medical imaging report. Recommendation: No specific imaging recommendation. Signed by Noé Branham MD, MHA, FCPS on 08/17/2019 4:52 PM Narrative Performed At Procedure(s): XR CHEST 2 VIEW PA AND LATERAL (STANDARD) Date of service: 08/17/2019 10:32 AM Provided clinical information: 74 years, Male, "copd with increased dyspnea" Procedure and materials: Standard protocol. Procedure: CHEST 2 VIEWS Technique: PA and lateral views of the chest were acquired. Comparison: Chest x-ray of 10/22/2014 Findings: There is no confluent pulmonary parenchymal opacity seen. Elevation of right hemidiaphragm. Cardioaortic silhouette appears unremarkable. Atherosclerotic disease of aorta. There is normal pulmonary vascularity. The mare are normal. No pleural effusion is seen. No pneumothorax is seen. Trachea midline. Mild endplate remodeling is seen of thoracic spine. No acute bony abnormality is seen. Procedure Note Interface, Rad Results - 08/17/2019 4:54 PM EST Procedure(s): XR CHEST 2 VIEW PA AND LATERAL (STANDARD) Date of service: 08/17/2019 10:32 AM Provided clinical information: 74 years, Male, "copd with increased dyspnea" Procedure and materials: Standard protocol. Procedure: CHEST 2 VIEWS Technique: PA and lateral views of the chest were acquired. Comparison: Chest x-ray of 10/22/2014 Findings: There is no confluent pulmonary parenchymal opacity seen. Elevation of right hemidiaphragm. Cardioaortic silhouette appears unremarkable. Atherosclerotic disease of aorta. There is normal pulmonary vascularity. The mare are normal. No pleural effusion is seen. No pneumothorax is seen. Trachea midline. Mild endplate remodeling is seen of thoracic spine. No acute bony abnormality is seen. IMPRESSION 1. No acute cardiopulmonary disease is seen. Urgency: Routine. This is a routine medical imaging report. Recommendation: No specific imaging recommendation. Signed by Noé Branham MD, MHA, FCPS on 08/17/2019 4:52 PM documented in this encounter Visit Diagnoses Diagnosis Chronic obstructive pulmonary disease, unspecified COPD type (HCC) documented in this encounter Insurance Payer Benefit Plan / Subscriber ID Effective Dates Phone Address Type Group MEDICARE MEDICARE PART A xxxxxxxxxxx 2011-Present Medicare & B [facility] CARE xxxxxxxxxxx 2016-Present [facility] OPT[employer] Guarantor Name Account Type Relation to Date of Phone Billing Patient Address Ryan Joy Personal/Family 1945 [phone] [address] [address]Home) [address] [phone] [place], [place] (Work) [address] documented as of this encounter
--- OUTSIDE RECORDS SUMMARY | 2019-08-29 02:32 | XMS REPORT | Summary of Care ---
:1945 Author Organization [facility] Address [address] [address] Care Team Providers Name Role Phone JennydanielleVidal Primary Care Provider Reason for Referral Diagnostic Testing (Routine) Status Reason Specialty Diagnoses / Procedures Referred By Contact Referred To Contact Closed Diagnoses Chronic obstructive pulmonary disease, unspecified COPD type (HCC) Tian Nielsen MD Procedures PFT ROUTINE STUDIES [address] [address] Reason for Visit Diagnostic Testing (Routine) Status Reason Specialty Diagnoses / Procedures Referred By Contact Referred To Contact Closed Diagnoses Chronic obstructive pulmonary disease, unspecified COPD type (HCC) Tian Nielsen MD Procedures PFT ROUTINE STUDIES [address] [address] Encounter Details Date Type Department Care Team Description 08/17/2019 Hospital Encounter [facility] Pulmonary Function Lab Outpatient [address] [address] Allergies Active Allergy Reactions Severity Noted Date [...] Office Visit Internal Medicine Vidal Quan MD [address] [place] [address] [phone] 02/17/2020 [facility] [address] [facility] [address] [phone] Health Maintenance Due Date Last Done Comments [...] Procedure Name Priority Date/Time Associated Diagnosis Comments PFT ROUTINE STUDIES Routine 08/17/2019 9:39 AM Chronic obstructive Results for this EST pulmonary disease, procedure are in unspecified COPD the results type (HCC) section. 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 4 Puffs Albuterol Administered Click "view [...] Interface, Multispeciality Results - 08/17/2019 11:48 AM [facility] Pulmonary Function Lab [address] [address] Last Name: RYAN JOY Room Number: CLINIC Community Liaison Officer: JAROCHO Date: 1945 Age: 74 Weight: 270.0 lbs, 122.7 kg Gender: Male Height: 67.5 in, 171.5 cm Physician Name: [id number] Date: 08/17/2019 9:39:46 AM Smoke Status: Quit BMI: 41.75 kg/m2 Predicted Protocol: MOD 01 [facility] NHANESIII 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
[2019-08-29 02:34] LABS: Hematocrit 43 % (42-52); Hemoglobin 14.4 g/dL (14.0-18.0); Mean Corpuscular HGB Conc 34 g/dL (31-36); Mean Corpuscular Hemoglobin 30 pg (27-31); Mean Corpuscular Volume 88 fL (80-94); Mean Platelet Volume 8.7 fL (7.4-10.4); Platelet Count 177 10^3/uL (150-450); Red Blood Count 4.83 10^6 /uL (4.18-5.48); Red Cell Distribution Width 14 % (10-15); White Blood Count 12.3 10^3/uL (3.5-10.8)
[2019-08-29] MEDS ORDERED: Furosemide IV* 10 MG/ML 10 ML VIAL (100 MG) IV ONE (02:41)
[2019-08-29 02:44] LABS: INR 1.03 (0.82-1.09)
[2019-08-29 02:51] LABS: Albumin/Globulin Ratio 1.2 (1-3); BUN/Creatinine Ratio 19.2 (8-20); Calcium 9.2 mg/dL (8.6-10.3); EGFR African American 89.7 (>60); EGFR Non-African American 74.1 (>60); Globulin 3.3 g/dL (2-4); Potassium 3.9 mmol/L (3.5-5.0); Total Bilirubin 1.2 mg/dL (0.2-1.0); Total Protein 7.3 g/dL (6.4-8.9)
[2019-08-29 02:53] LABS: Troponin I 0.01 ng/mL (<0.03)
[2019-08-29] MEDS: methylPREDNISolone 125 MG* 2 ML VIAL IV ONE ×2 (03:04→03:05)
[2019-08-29 03:28] LABS: ABS Basophils 0.1 10^3/ul (0-0.2); ABS Eosinophils 0.2 10^3/ul (0-0.6); ABS Lymphocytes 1.7 10^3/ul (1.0-4.8); ABS Monocytes 1.6 10^3/ul (0-0.8); ABS Neutrophils 8.8 10^3/ul (1.5-7.7); Eosinophil % 1.4 %; Lymphocyte % 13.7 %; Nucleated Red Blood Cells % 0.2
[2019-08-29] MEDS ORDERED: Adenosine* 3 MG/ML VIAL ONE ×2 (05:26→05:31)
[2019-08-29] MEDS ORDERED: Adenosine* 3 MG/ML VIAL IV PUSH ONE (05:45)
[2019-08-29] MEDS ORDERED: Diltiazem IV BAG* D5W Premix 125 MG/125 ML BAG IV SCH (06:00)
[2019-08-29] MEDS ORDERED: Ipratropium 0.5MG/2.5ML NEB* 0.5 MG/2.5 ML NEB.SOLN INH PRN (07:22)
[2019-08-29] MEDS ORDERED: Levalbuterol 0.63MG/3ML NEB* UNIT OF USE INH PRN (07:22)
[2019-08-29] MEDS ORDERED: Iodixanol* (CONTRAST) 320 MG/ML 100 ML SDV IV ONE (07:43)
[2019-08-29] MEDS: Tamsulosin CAP* 0.4 MG PO SCH (08:16)
[2019-08-29] MEDS: Enoxaparin(*) 40 MG/0.4 ML SYR SUBCUT SCH (08:19)
[2019-08-29] MEDS: DOXYcycline IV* 100 MG in NS 0.9% 250 ML* 250 ML IVPB SCH ×2 (08:47→21:37)
[2019-08-29] MEDS: Mometasone/Formoter 200/5 MDI INH SCH (08:56)
--- NOTE | 2019-08-29 10:15 | HP ---
CC: Dr. Vidal Quan; Dr. Manjit Reynolds * ADMISSION HISTORY AND PHYSICAL: DATE OF ADMISSION: 08/29/19 PRIMARY CARE PHYSICIAN: Dr. Vidal Quan. CHIEF COMPLAINT: Shortness of breath. HISTORY OF PRESENT ILLNESS: This is a 74-year-old gentleman with past medical history of COPD; obstructive sleep apnea, on CPAP at night, came in due to worsening shortness of breath and cough for the last 1 week. The patient was given a 5-day course of prednisone along with azithromycin without much relief. Today, he was having severe shortness of breath, having cold, chills, shaking , and diaphoretic, so decided to call the ambulance. Upon arrival to the ER, the patient was very severely short of breath, initially thought to have some congestive heart failure, was given a dose of Lasix, after which he went into severe SVT with heart rate of 200s. The patient required multiple doses of adenosine, even then he was reflexively going back into SVT, so was started on a Cardizem drip which controlled his rate to a sinus tachycardia. The patient otherwise offers no complaints such as chest pain, any abdominal pain, nausea, vomiting, or diarrhea. He did state that during the events of SVT, he had some mild shoulder pain especially on the right shoulder area. He otherwise denies any other fever and denies any urinary burning sensation or pain with urinary, any numbness, tingling, or weakness. PAST MEDICAL HISTORY: As mentioned, obstructive sleep apnea with CPAP, COPD, fatty liver disease, benign prostatic hypertrophy, borderline diabetes, and chronically elevated right hemidiaphragm. PAST SURGICAL HISTORY: The patient denies any other surgical history. HOME MEDICATIONS: The patient is currently on: 1. Flomax 0.4 mg every morning. 2. Symbicort 2 puffs by inhalation b.i.d. 3. Tessalon Perles 100 mg p.o. t.i.d. 4. Ventolin 2 puffs by inhalation every 4 hours p.r.n. shortness of breath. ALLERGIES: The patient has no known drug allergies. FAMILY HISTORY: Father had an PR and diabetes and at age 72. Sister and mother both had breast cancer. SOCIAL HISTORY: The patient is a former smoker, quit 40 years ago. No other alcohol or drug use. He lives with his Nneka who is his surrogate decision maker, and the patient is otherwise a full code. 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 REVIEW OF SYSTEMS: A 14-point review of systems did not reveal any new information other than what is mentioned in the HPI. PHYSICAL EXAMINATION GENERAL: The patient is awake, alert, oriented x3, was noted to be in moderate respiratory distress and was speaking in short sentences. VITAL SIGNS: In the ER, temperature was noted to be 100 degrees Fahrenheit, BP was 127/68, heart rate 92, respiration rate 21, saturating 95% on 4 L OxyMask. HEAD AND NECK: Atraumatic, normocephalic. Bilateral pupils reactive. Oral mucosa is moist. Neck supple. No jugular venous distention. LUNGS: Clear to auscultation bilaterally. No wheezing, rhonchi, or rales. HEART: The patient had recurrent tachycardia. EXTREMITIES: The patient did have mild pitting edema in bilateral lower extremities. DIAGNOSTIC STUDIES/LAB DATA: CBC shows a mildly elevated white count of 12.1; hemoglobin, hematocrit, and platelets were within normal limits. Coagulation profile shows INR of 1.03. ABG was showing pH of 7.48, pCO2 of 35, oxygen saturation of 96% on 4 L nasal cannula. Comprehensive metabolic panel shows elevated random glucose, but otherwise normal CMP. Minimally elevated random total bilirubin. Two sets of cardiac enzymes were negative. Lactic acid was normal. BNP was normal. Portable chest x-ray was poor penetration, showed persistent right hemidiaphragm elevation, but when compared to his older x-ray, there was no significant change. EKG: Initial EKG on arrival was showing sinus tachycardia at 118 beats per minute without any ST elevation. Within 3 hours of being in the ER, the patient went into SVT, appears to be a reentrant tachycardia with some ST- segment depression in the anterior leads and ST segment elevation in the lateral leads. Repeat EKG again shows presence of SVT this time at 189 beats per minute, and fourth EKG shows sinus tachycardia again at 102 beats per minute without any ST elevation, but there was some J-point depression in lead V3 to V6. When compared to an older EKG from 2018, these changes were still present at that time as well. The overall EKG waveform appears to be unchanged. IMPRESSION: This is a 74-year-old gentleman who came in with shortness of breath, is noted to go into supraventricular tachycardia requiring multiple adenosine and finally started on a Cardizem drip. ASSESSMENT: 1. Shortness of breath, question chronic obstructive pulmonary disease exacerbation. Given his concomitant supraventricular tachycardia, we will only start the patient on levalbuterol along with Atrovent, steroid, and doxycycline to cover any community-acquired pneumonia. We will also get a CT angiogram as the patient was tachycardic with shortness of breath to rule out any pulmonary embolism. We will get an echocardiogram to rule out any pulmonary hypertension as the patient does have a history of chronic obstructive pulmonary disease and obstructive sleep apnea, both of which are risk factors for pulmonary hypertension. 2. Supraventricular tachycardia, likely related to his respiratory distress. We will consult Cardiology to evaluate the patient and follow up echocardiogram. 3. History of obstructive sleep apnea. Restart his home CPAP. consult Cardiology to evaluate the patient 4. History of fatty liver disease. 5. History of benign prostatic hypertrophy. Restart home tamsulosin. 6. DVT prophylaxis with Lovenox. 7. Code status: Full code. [id number]/[facility] #: [id number] [facility]
--- NOTE | 2019-08-29 11:24 | PN ---
Subjective Date of Service: 08/29/19 Interval History: Cough much better. Not productive. Less SOB. No new c/o. Objective Active Medications: Enoxaparin Sodium (Lovenox(*)) 40 mg SUBCUT Q24H [facility] Last Admin: 08/29/19 08:19 Dose: 40 mg Doxycycline Hyclate 100 mg/ (Sodium Chloride) 250 mls @ 250 mls/hr IVPB Q12H [facility] Last Admin: 08/29/19 08:47 Dose: 250 mls/hr Ipratropium [place] (Atrovent 0.5 Mg Neb.Elaine*) 0.5 mg INH Q4H PRN PRN Reason: SOB/WHEEZING Ipratropium [place] (Atrovent Hfa Inhaler(Nf)) 2 puff INH [id number] AWAKE [facility] Levalbuterol HCl (Xopenex 0.63mg/3ml Neb*) 0.63 mg INH Q4H PRN PRN Reason: SOB/WHEEZING Methylprednisolone Sodium Succinate (Solu-Medrol 40 Mg) 40 mg IV Q12H [facility] Metoprolol Tartrate (Lopressor Tab*) 25 mg PO BID [facility] Mometasone Furoate/Formoterol Fumar (Dulera 200/5 Mdi*) 2 puff INH BID [facility]; Protocol Last Admin: 08/29/19 08:56 Dose: 2 puff Tamsulosin HCl (Flomax Cap*) 0.4 mg PO QAM [facility] Last Admin: 08/29/19 08:16 Dose: 0.4 mg Vital Signs - 8 hr 08/29/19 08/29/19 08/29/19 03:34 04:00 04:06 Temperature Pulse Rate 100 96 103 Respiratory 17 22 22 Rate Blood Pressure 159/81 156/94 (mmHg) O2 Sat by Pulse 93 94 92 Oximetry 08/29/19 08/29/19 08/29/19 04:08 04:34 04:44 Temperature Pulse Rate 102 100 106 Respiratory 20 31 20 Rate Blood Pressure 142/72 (mmHg) O2 Sat by Pulse 94 93 93 Oximetry 08/29/19 08/29/19 08/29/19 05:00 06:00 06:04 Temperature Pulse Rate 105 101 99 Respiratory 27 21 21 Rate Blood Pressure 112/85 (mmHg) O2 Sat by Pulse 93 96 94 Oximetry 08/29/19 08/29/19 08/29/19 06:34 07:00 07:01 Temperature Pulse Rate 92 89 Respiratory 23 17 22 Rate Blood Pressure 119/70 96/72 (mmHg) O2 Sat by Pulse 95 95 Oximetry 08/29/19 08/29/19 08/29/19 07:04 07:56 07:58 Temperature 98.8 F Pulse Rate 93 89 90 Respiratory 21 21 18 Rate Blood Pressure 127/68 141/69 141/69 (mmHg) O2 Sat by Pulse 95 96 96 Oximetry 08/29/19 08/29/19 08/29/19 08:00 08:13 08:30 Temperature 98.8 F Pulse Rate 88 98 94 Respiratory 19 18 19 Rate Blood Pressure 138/86 127/92 117/65 (mmHg) O2 Sat by Pulse 96 95 92 Oximetry 08/29/19 08/29/19 08/29/19 08:52 09:00 10:00 Temperature Pulse Rate 105 90 Respiratory 30 26 20 Rate Blood Pressure 130/75 (mmHg) O2 Sat by Pulse 89 93 Oximetry Oxygen Devices in Use Now: Simple Face Mask, OxyMask Appearance: Alert, sitting up on ICU bed. In good spirits. Looks comfortable. Eyes: No Scleral Icterus Respiratory: Clear to Percussion, - - diminished BS BL Abdominal: NL Sounds; No Tenderness; No Distention, No Hepatosplenomegaly, - Extremities: No Edema, No Clubbing, Cyanosis, - Skin: No Rash or Ulcers, No Nodules or Sclerosis, - Neurological: Alert and Oriented x 3, NL Sensation Result Diagrams: 08/29/19 02:15 08/29/19 02:15 Microbiology and Other Data: Microbiology 08/29/19 07:55 Nasal Screen MRSA (PCR) - Final Nasal Mrsa Not Detected Assess/Plan/Problems-Billing Assessment: - Patient Problems (1) COPD (chronic obstructive pulmonary disease) Current Visit: No Status: Acute Code(s): J44.9 - CHRONIC OBSTRUCTIVE PULMONARY DISEASE, UNSPECIFIED SNOMED Code(s): 09082087 Comment: Ipratropium MDI ordered. Change to oral prednisone ? 08/30. Continue doxycycline. (2) SVT (supraventricular tachycardia) Current Visit: Yes Status: Acute Code(s): I47.1 - SUPRAVENTRICULAR TACHYCARDIA SNOMED Code(s): 8064204 Comment: Start po metoprolol 12/7, stop IV diltiazem. Echo 08/30. Responded to adenosine 6 mg IV. (3) OTTONIEL on CPAP Current Visit: No Status: Chronic Code(s): G47.33 - OBSTRUCTIVE SLEEP APNEA (ADULT) (PEDIATRIC) SNOMED Code(s): 39271004 Comment: - Continue home cpap.
[2019-08-29] MEDS ORDERED: Metoprolol Tartrate TAB* 25 MG PO SCH (11:30)
[2019-08-29] MEDS ORDERED: Ipratropium HFA INHALER(NF) (ALTERNATIVE = NEBS) INH SCH (13:00)
[2019-08-29] MEDS: Ipratropium 0.5MG/2.5ML NEB* 0.5 MG/2.5 ML NEB.SOLN INH SCH ×2 (14:46→19:27)
[2019-08-29] MEDS: methylPREDNISolone SOD 40 MG* 1 ML VIAL IV SCH (15:44)
--- NOTE | 2019-08-29 17:04 | CONS ---
CC: Dr. Quan CARDIOLOGY CONSULTATION: DATE OF CONSULT: 08/29/19 INDICATION FOR CONSULTATION: Tachycardia, supraventricular tachycardia. HISTORY OF PRESENT ILLNESS: The patient is a 74-year-old gentleman with a history of severe COPD, sl eep apnea, oxygen dependent, who has been having increased cough and shortness of breath for a couple of days. He did see his primary care physician and was started on prednisone and azithromycin. The patient came to the emergency room because he was very short of breath, having excessive coughing. The patient arrived in normal sinus rhythm, however, soon went into significant tachycardia at 200 be ats per minute. The patient was given multiple doses of adenosine and converted to sinus tachycardia . He has remained in that rhythm overnight. In speaking with the patient today, he is actually josefan g well. His cough is better. He denies any chest pain. He denies any palpitations. He denies any lightheadedness, dizziness, or syncope. PAST MEDICAL HISTORY: Significant for sleep apnea, COPD, BPH, borderline diabetes. PAST SURGICAL HISTORY: No surgeries. OUTPATIENT MEDICATIONS: 1. Flomax 0.4 mg a day. 2. Symbicort inhaler. 3. Tessalon Perles. 4. Ventolin inhaler. ALLERGIES: No known drug allergies. FAMILY HISTORY: Father of a myocardial infarction at 72. SOCIAL HISTORY: He is a previous smoker. He quit 4 years ago. No alcohol or drug use. He lives wi th his . 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 REVIEW OF SYSTEMS: Negative for fevers and chills. Negative for changes in bowel or bladder habits. Negative for change in weight. Other 12-point review is unremarkable. PHYSICAL EXAM: Height is 5 feet 9 inches, weight 263 pounds, temperature 98.6, heart rate is 92, blo od pressure 132/65, respiratory rate is 23, oxygen saturation 94% on a face mask. Sclerae anicteric. Oropharynx is pink without erythema. Carotids are 2+ without bruits. JVD is normal. Thyroid is no rmal. Cardiac Exam: S1, S2 without any murmurs, rubs, or gallops. Lungs are clear to auscultation. There are decreased breath sounds throughout. There are no obvious rhonchi or rales. There is no du llness to percussion. Abdomen is obese, soft, nontender, nondistended with normoactive bowel sounds. Extremities show no edema. He has 2+ pulses throughout. The patient is awake, alert, and oriented . He moves all 4 extremities equally. DIAGNOSTIC STUDIES/LAB DATA: CBC within normal limits. Chemistries within normal limits. BUN and c reatinine are normal. AST and ALT are normal. BNP is normal at 24. Troponins are negative x2. EKG today demonstrates normal sinus rhythm at 102 beats per minute, otherwise unremarkable. Again, h is EKG soon after arrival to the emergency room showed an SVT at over 200 beats per minute. IMPRESSION AND PLAN: This is a 74-year-old gentleman who came to the hospital because of cough and s hortness of breath. I do not think the patient had any evidence of congestive heart failure. His ch est x-ray was not consistent with heart failure. His BNP was normal. I think the patient had supraventricular tachycardia secondary to his pulmonary issues. The patient is currently on Cardizem. It is my recommendation that the patient stay on a low dose Cardizem. The patient will get an echoca rdiogram tomorrow morning and if that is relatively unremarkable then I do not think any other workup is necessary. [id number]/[facility] #: [id number]
[2019-08-29] MEDS: Diltiazem CD CAP* 120 MG PO SCH (21:37)
[2019-08-30] MEDS: methylPREDNISolone SOD 40 MG* 1 ML VIAL IV SCH (03:06)
[2019-08-30 06:17] LABS: ABS Lymphocytes 0.9 10^3/ul (1.0-4.8); ABS Monocytes 1.1 10^3/ul (0-0.8); ABS Neutrophils 13.1 10^3/ul (1.5-7.7); Hematocrit 41 % (42-52); Hemoglobin 14.2 g/dL (14.0-18.0); Lymphocyte % 5.8 %; Mean Corpuscular HGB Conc 35 g/dL (31-36); Mean Corpuscular Hemoglobin 30 pg (27-31); Mean Corpuscular Volume 88 fL (80-94); Mean Platelet Volume 8.9 fL (7.4-10.4); Platelet Count 182 10^3/uL (150-450); Red Blood Count 4.68 10^6 /uL (4.18-5.48); Red Cell Distribution Width 15 % (10-15); White Blood Count 15.1 10^3/uL (3.5-10.8)
[2019-08-30 06:38] LABS: Calcium 9.5 mg/dL (8.6-10.3); EGFR African American 102.7 (>60); EGFR Non-African American 84.9 (>60)
[2019-08-30] MEDS: Mometasone/Formoter 200/5 MDI INH SCH ×2 (07:24→08:00)
[2019-08-30] MEDS: Ipratropium 0.5MG/2.5ML NEB* 0.5 MG/2.5 ML NEB.SOLN INH SCH ×2 (07:25→07:44)
[2019-08-30] MEDS ORDERED: Ipratropium 0.5MG/2.5ML NEB* 0.5 MG/2.5 ML NEB.SOLN INH PRN (08:03)
[2019-08-30] MEDS: Tamsulosin CAP* 0.4 MG PO SCH (08:34)
[2019-08-30] MEDS: Diltiazem CD CAP* 120 MG PO SCH (08:34)
[2019-08-30] MEDS: Enoxaparin(*) 40 MG/0.4 ML SYR SUBCUT SCH (08:34)
[2019-08-30] MEDS: DOXYcycline IV* 100 MG in NS 0.9% 250 ML* 250 ML IVPB SCH (08:35)
[2019-08-30 12:46] VITALS: BP 131/63
--- NOTE | 2019-08-30 17:07 | DS ---
CC: Dr. Vidal Quan * DISCHARGE SUMMARY: DATE OF ADMISSION: 08/29/19 DATE OF DISCHARGE: 08/30/19 HISTORY OF PRESENT ILLNESS/HOSPITAL COURSE: This 74-year-old man presented with shortness of breath. He has a long history of COPD and sleep apnea. He had been ill for about 3 weeks. He saw his swatch folder and he got a 5-day course of prednisone. He saw his primary care physician and he got a 5-day course of azithromycin; however, he continued to get worse. In the emergency room, he had SVT with heart rate about 180 to 190. This was following a dose of intravenous furosemide. He was very short of breath at that time. The patient received adenosine to break his SVT, which was successful. He was started on intravenous steroids and intravenous doxycycline. He was much improved by the time of discharge. His said this was the best she had seen him in several weeks. He does have a history of borderline diabetes. His blood sugar on the day of discharge was 270; however, his prednisone dose is going to be tapered rapidly and I think he should return to his baseline glycemic control rather quickly. FINAL DIAGNOSES: 1. Chronic obstructive pulmonary disease exacerbation. 2. Supraventricular tachycardia. 3. Obstructive sleep apnea. DISCHARGE MEDICATIONS: 1. Prednisone 10 mg taper from 40 to 0 over 4 days. 2. Doxycycline 100 mg b.i.d. 3. Budesonide/formoterol 160/4.5 two puffs twice daily. 4. Albuterol inhaler 2 puffs every 4 hours p.r.n. 5. Tamsulosin 0.4 mg daily. 6. Benzonatate 100 mg t.i.d. p.r.n. CONDITION ON DISCHARGE: Improved. DISPOSITION ON DISCHARGE: Stable. [id number]/[facility] #: [id number] [facility]
[2019-08-30] MEDS ORDERED: DOXYcycline CAP(*) 100 MG PO SCH (21:00)
[2019-08-31] MEDS ORDERED: predniSONE TAB* 20 MG PO SCH (09:00)
== END 2019-08-30 12:40 | disposition home or self-care (01) ==
LOC: ED 01:48 → INTOOBSV 06:36 → ICU 06:36 → MEDTELE 14:43
PROVIDERS: ADMIT Internal Medicine; ATTEND Internal Medicine
DX: J44.1 Chronic obstructive pulmonary disease with (acute) exacerbation (principal); I47.1 Supraventricular tachycardia; G47.33 Obstructive sleep apnea (adult) (pediatric); R06.02 Shortness of breath; N40.0 Benign prostatic hyperplasia without lower urinary tract symptoms; R73.03 Prediabetes; Z79.899 Other long term (current) drug therapy; Z87.891 Personal history of nicotine dependence; K76.0 Fatty (change of) liver, not elsewhere classified; R94.31 Abnormal electrocardiogram [ECG] [EKG]
CPT/HCPCS: 36415; 71045; 71275; 80048; 80053; 82803; 83605; 83880; 84484; 85025; 85610; 87641; 93005; 94640; 96372; 96374; 96375; 96376; 99285; A9270-GY; G0378; J0153; J1650; J1940; J2920; J2930; J3490; Q9967

== ENCOUNTER 2024-08-28 18:34 | Inpatient (IN) ==
[2024-08-28 19:01] LABS: ABS Lymphocytes 0.4 10^3/uL (1.0-4.8); ABS Monocytes 0.1 10^3/uL (0.0-1.1); ABS Neutrophils 3.9 10^3/uL (1.5-7.6); Eosinophil % 0.6 %; Hematocrit 36.6 % (38-53); Hemoglobin 12.4 g/dL (13.2-16.3); Lymphocyte % 8.8 %; Mean Corpuscular Hemoglobin 30.8 pg (27-33); Mean Corpuscular Hgb Conc 33.8 g/dL (31-36); Mean Corpuscular Volume 91.1 fL (80-97); Mean Platelet Volume 8.5 fL (7.5-11.2); Nucleated Red Blood Cells % 0.1 %/100WBC (0.0-0.8); Platelet Count 135 10^3/uL (150-450); Red Blood Count 4.01 10^6/uL (4.06-5.63); Red Cell Distribution Width 15.6 % (12-17); White Blood Count 4.5 10^3/uL (3.6-10.2)
[2024-08-28] MEDS: Acetaminophen IV 1 GM/100ML 1,000 MG/100 ML BAG IV ONE (19:06)
[2024-08-28 19:13] LABS: Activated Partial Thrombo Time 27.3 seconds (26.0-38.0); INR 1.21 (0.85-1.14)
[2024-08-28 19:48] LABS: Albumin 3.9 g/dL (3.2-5.2); Albumin/Globulin Ratio 1.7 (1-3); C Reactive Protein 2.34 mg/L (<8.01); Calcium 9.2 mg/dL (8.6-10.3); Creatinine, Serum 0.96 mg/dL (0.67-1.17); Globulin 2.3 g/dL (2-4); Potassium 4.1 mmol/L (3.5-5.0); Total Bilirubin 2.3 mg/dL (0.2-1.0); Total Protein 6.2 g/dL (6.4-8.9); eGFR CKD-EPI 80.9 (>60)
[2024-08-28] MEDS: Furosemide 20 mg/2 ml IV VIAL IV ONE (20:11)
[2024-08-28 20:21] LABS: High Sensitivity Troponin 1 Hr 6 pg/mL (<20)
[2024-08-28] MEDS: Iodixanol 320 (CONTRAST) 100 ML SDV IV ONE (21:56)
[2024-08-28] MEDS ORDERED: Zosyn per Pharmacy NOTE FOLLOW UP SCH (23:00)
[2024-08-28] MEDS: Piperacillin/Tazobac 3.375 BAG 3.375 GM/100 ML BAG IV ONE (23:17)
[2024-08-28] MEDS ORDERED: Albuterol/Ipratropium NEB.SOL (2.5/0.5 MG) 3 ML NEB.SOLN ONE (23:55)
[2024-08-28] MEDS: Albuterol/Ipratropium NEB.SOL (2.5/0.5 MG) 3 ML NEB.SOLN INH ONE (23:59)
[2024-08-29 00:04] LABS: Urine Appearance Clear; Urine Bilirubin Negative (Negative); Urine Blood Negative (Negative); Urine Color Light-Yellow; Urine Glucose Negative (Negative); Urine Ketones Negative (Negative); Urine Nitrite Negative (Negative); Urine Protein Negative (Negative); Urine Specific Gravity 1.041 (1.002-1.030); Urine Urobilinogen Negative (Negative)
[2024-08-29] MEDS ORDERED: Metoprolol Tartrate 5 mg VIAL 5 ml VIAL (1 mg/ml) ONE (01:18)
[2024-08-29] MEDS: Metoprolol Tartrate 5 mg VIAL 5 ml VIAL (1 mg/ml) IV ONE (01:20)
[2024-08-29] MEDS: Magnesium Sulfate 2 gm BAG 2 GM/50 ML BAG IVPB ONE (01:34)
[2024-08-29] MEDS ORDERED: Dextrose 50% Syringe 50 ml 25 GM/50 ML SYRINGE IV PUSH PRN (02:28)
[2024-08-29] MEDS ORDERED: ZOSYN 3.375 GM Q8H per EXTENDED INFUSION IV SCH (03:30)
[2024-08-29] MEDS: ZOSYN 3.375 GM Q8H per EXTENDED INFUSION IV SCH (03:40)
[2024-08-29] MEDS: Enoxaparin 40 MG/0.4 ML SYR SUBCUT SCH (03:45)
[2024-08-29] MEDS ORDERED: Albuterol/Ipratropium NEB.SOL (2.5/0.5 MG) 3 ML NEB.SOLN INH PRN (05:55)
[2024-08-29] MEDS ORDERED: Albuterol 2.5mg/3 ml (0.083%) NEB.SOLN INH PRN (05:56)
[2024-08-29 06:46] LABS: ABS Lymphocytes 0.2 10^3/uL (1.0-4.8); ABS Monocytes 0.7 10^3/uL (0.0-1.1); ABS Neutrophils 11.9 10^3/uL (1.5-7.6); ABS Nucleated RBC 0.01 10^3/ul; Hematocrit 36.6 % (38-53); Hemoglobin 12.2 g/dL (13.2-16.3); Lymphocyte % 1.8 %; Mean Corpuscular Hemoglobin 30.8 pg (27-33); Mean Corpuscular Hgb Conc 33.5 g/dL (31-36); Mean Corpuscular Volume 91.9 fL (80-97); Mean Platelet Volume 9.8 fL (7.5-11.2); Nucleated Red Blood Cells % 0.1 %/100WBC (0.0-0.8); Platelet Count 127 10^3/uL (150-450); Red Blood Count 3.98 10^6/uL (4.06-5.63); Red Cell Distribution Width 15.2 % (12-17); White Blood Count 12.9 10^3/uL (3.6-10.2)
[2024-08-29 07:30] LABS: ALT 183 U/L (7-52); Albumin 3.6 g/dL (3.2-5.2); Albumin/Globulin Ratio 1.4 (1-3); Alkaline Phosphatase 89 U/L (35-149); Anion Gap 12 mmol/L (2-16); Blood Urea Nitrogen 29 mg/dL (6-24); CO2 Carbon Dioxide 25 mmol/L (22-32); Calcium 8.9 mg/dL (8.6-10.3); Chloride 103 mmol/L (101-111); Cholesterol 77 mg/dL; Creatinine, Serum 1.17 mg/dL (0.67-1.17); Globulin 2.5 g/dL (2-4); Glucose 155 mg/dL (70-100); HDL Cholesterol 54.4 mg/dL; LDL Cholesterol 15 mg/dL; Magnesium 2.4 mg/dL (1.9-2.7); Sodium 140 mmol/L (135-145); Total Bilirubin 3.6 mg/dL (0.2-1.0); Total Protein 6.1 g/dL (6.4-8.9); Triglycerides 36 mg/dL; eGFR CKD-EPI 63.8 (>60)
[2024-08-29 07:39] LABS: Potassium, Whole Blood 4.4 mmol/L (3.4-4.5)
[2024-08-29] MEDS: Mometasone/Formoter 200/5 MDI INH SCH (11:17)
[2024-08-30 06:16] LABS: ABS Eosinophils 0.1 10^3/uL (0.0-0.5); ABS Lymphocytes 0.5 10^3/uL (1.0-4.8); ABS Monocytes 0.7 10^3/uL (0.0-1.1); ABS Neutrophils 7.2 10^3/uL (1.5-7.6); ABS Nucleated RBC 0.01 10^3/ul; Eosinophil % 1.1 %; Hemoglobin 11.4 g/dL (13.2-16.3); Lymphocyte % 5.6 %; Mean Corpuscular Hemoglobin 30.5 pg (27-33); Mean Corpuscular Hgb Conc 33.6 g/dL (31-36); Mean Corpuscular Volume 90.7 fL (80-97); Mean Platelet Volume 9.7 fL (7.5-11.2); Nucleated Red Blood Cells % 0.1 %/100WBC (0.0-0.8); Platelet Count 107 10^3/uL (150-450); Red Blood Count 3.75 10^6/uL (4.06-5.63); Red Cell Distribution Width 15.6 % (12-17); White Blood Count 8.5 10^3/uL (3.6-10.2)
[2024-08-30 06:49] LABS: Albumin 3.4 g/dL (3.2-5.2); Albumin/Globulin Ratio 1.4 (1-3); Calcium 8.5 mg/dL (8.6-10.3); Creatinine, Serum 1.04 mg/dL (0.67-1.17); Direct Bilirubin 2.2 mg/dL (0.03-0.18); Globulin 2.4 g/dL (2-4); Magnesium 2.2 mg/dL (1.9-2.7); Total Bilirubin 4.2 mg/dL (0.2-1.0); Total Protein 5.8 g/dL (6.4-8.9); eGFR CKD-EPI 73.5 (>60)
[2024-08-30 07:03] LABS: TSH Ultra Thyroid Stim Horm 3.89 mcIU/mL (0.34-5.60)
[2024-08-30] MEDS: Albuterol/Ipratropium NEB.SOL (2.5/0.5 MG) 3 ML NEB.SOLN INH SCH ×2 (15:37→20:43)
[2024-08-31 06:33] LABS: Platelet Count 108 10^3/uL (150-450); White Blood Count 5.5 10^3/uL (3.6-10.2)
[2024-08-31 06:43] LABS: ABS Lymphocytes 0.4 10^3/uL (1.0-4.8); ABS Monocytes 0.4 10^3/uL (0.0-1.1); ABS Neutrophils 4.8 10^3/uL (1.5-7.6); Hematocrit 32.7 % (38-53); Hemoglobin 11.2 g/dL (13.2-16.3); Lymphocyte % 6.9 %; Mean Corpuscular Hemoglobin 31.2 pg (27-33); Mean Corpuscular Hgb Conc 34.4 g/dL (31-36); Mean Corpuscular Volume 90.8 fL (80-97); Red Cell Distribution Width 15.3 % (12-17)
[2024-08-31 07:20] LABS: Albumin 3.3 g/dL (3.2-5.2); Albumin/Globulin Ratio 1.2 (1-3); Calcium 8.3 mg/dL (8.6-10.3); Creatinine, Serum 0.9 mg/dL (0.67-1.17); Globulin 2.7 g/dL (2-4); Magnesium 2.1 mg/dL (1.9-2.7); Potassium 4.3 mmol/L (3.5-5.0); Total Bilirubin 2.7 mg/dL (0.2-1.0); eGFR CKD-EPI 87.4 (>60)
[2024-08-31] MEDS: Furosemide 20 mg/2 ml IV VIAL IV SLOW PU ONE (12:33)
[2024-09-01] MEDS: ZOSYN 3.375 GM Q8H per EXTENDED INFUSION IV SCH (05:07)
[2024-09-01 06:12] LABS: ABS Lymphocytes 0.7 10^3/uL (1.0-4.8); ABS Monocytes 0.8 10^3/uL (0.0-1.1); ABS Neutrophils 5.2 10^3/uL (1.5-7.6); Eosinophil % 0.6 %; Hematocrit 31.9 % (38-53); Hemoglobin 11.1 g/dL (13.2-16.3); Lymphocyte % 10.3 %; Mean Corpuscular Hemoglobin 31.2 pg (27-33); Mean Corpuscular Hgb Conc 34.8 g/dL (31-36); Mean Corpuscular Volume 89.7 fL (80-97); Mean Platelet Volume 10.5 fL (7.5-11.2); Platelet Count 110 10^3/uL (150-450); Red Blood Count 3.55 10^6/uL (4.06-5.63); Red Cell Distribution Width 15.5 % (12-17); White Blood Count 6.8 10^3/uL (3.6-10.2)
[2024-09-01 06:20] LABS: Albumin 3.3 g/dL (3.2-5.2); Albumin/Globulin Ratio 1.2 (1-3); Calcium 8.4 mg/dL (8.6-10.3); Creatinine, Serum 0.85 mg/dL (0.67-1.17); Globulin 2.8 g/dL (2-4); Potassium 3.9 mmol/L (3.5-5.0); Total Bilirubin 1.6 mg/dL (0.2-1.0); Total Protein 6.1 g/dL (6.4-8.9); eGFR CKD-EPI 88.9 (>60)
[2024-09-01] MEDS: cefTRIAXone 2 gm/50 mL D5W 2 GM/50 ML BAG IV SCH (11:26)
[2024-09-01] MEDS: Morphine 2 MG/ML SYRINGE IV ONE ×2 (13:56→13:57)
[2024-09-01] MEDS: Furosemide 20 mg/2 ml IV VIAL IV ONE (13:56)
[2024-09-01] MEDS: Sulfur Hexaflouride MICROSPHR 25 MG VIAL IV PRN (14:24)
[2024-09-02 06:40] LABS: ABS Eosinophils 0.2 10^3/uL (0.0-0.5); ABS Lymphocytes 1.6 10^3/uL (1.0-4.8); ABS Monocytes 1.2 10^3/uL (0.0-1.1); ABS Neutrophils 3.9 10^3/uL (1.5-7.6); Eosinophil % 2.6 %; Hematocrit 34.3 % (38-53); Hemoglobin 11.7 g/dL (13.2-16.3); Mean Corpuscular Hemoglobin 30.9 pg (27-33); Mean Corpuscular Hgb Conc 34.2 g/dL (31-36); Mean Corpuscular Volume 90.5 fL (80-97); Mean Platelet Volume 9.8 fL (7.5-11.2); Platelet Count 131 10^3/uL (150-450); Red Blood Count 3.79 10^6/uL (4.06-5.63); Red Cell Distribution Width 15.4 % (12-17); White Blood Count 6.9 10^3/uL (3.6-10.2)
[2024-09-02 08:17] LABS: Calcium 8.2 mg/dL (8.6-10.3); Creatinine, Serum 0.8 mg/dL (0.67-1.17); Magnesium 1.9 mg/dL (1.9-2.7); eGFR CKD-EPI 90.6 (>60)
[2024-09-02] MEDS: CMC:Epleronone 25 mg TAB (NF) PO SCH (08:54)
[2024-09-02 09:55] VITALS: BP 113/63
== END 2024-09-02 11:50 | disposition home or self-care (01) | DRG 871 ==
LOC: ED 18:34 → EDHOLD 23:34 → SUATTDRO 23:34 → ICU 08-29 01:53 → SSU 08-29 16:24
PROVIDERS: ADMIT Internal Medicine; ATTEND Student in an Organized Health Care Education/Training Program